=== PATIENT | male | born 1975 | race Caucasian/White ===

== ENCOUNTER → 2016-08-25 | Outpatient (CLI) | payer OTHER ==
[2016-08-25 17:44] LABS: BASO % 0.5 % (0.0-1.0); EOS # 0.3 K/mm3 (0.0-0.50); EOS % 6.3 % (0.0-3.0); LARGE UNSTAINED CELL # 0.1 K/mm3 (0.0-0.4); LARGE UNSTAINED CELL % 2.3 % (0.0-4.0); LYMPH % 37.2 % (24.0-44.0); MEAN CORPUSCULAR HEMOGLOBIN 32.3 pg (27.0-33.0); MEAN CORPUSCULAR HGB CONC 35.4 g/dl (32.0-36.5); MEAN CORPUSCULAR VOLUME 91.4 fl (80.0-96.0); MONO # 0.4 K/mm3 (0.0-0.8); MONO % 8.3 % (0.0-5.0); NEUTROPHILS # 2.4 K/mm3 (1.8-7.7); NEUTROPHILS % 45.4 % (36.0-66.0); PLATELET COUNT, AUTOMATED 214 k/mm3 (150-450); RED CELL DISTRIBUTION WIDTH 12.8 % (11.5-14.5); WHITE BLOOD COUNT 5.3 K/mm3 (4.0-10.0)
[2016-08-25 18:02] LABS: ALBUMIN 3.9 GM/DL (3.2-5.2); ALBUMIN/GLOBULIN RATIO 1.18 (1.00-1.93); ALKALINE PHOSPHATASE 114 U/L (45-117); ALT/SGPT 76 U/L (12-78); ANION GAP 10 MEQ/L (8-16); AST/SGOT 30 U/L (15-37); BILIRUBIN,TOTAL 0.4 MG/DL (0.2-1.0); BLOOD UREA NITROGEN 14 MG/DL (7-18); CALCIUM LEVEL 9.1 MG/DL (8.5-10.1); CARBON DIOXIDE LEVEL 27 MEQ/L (21-32); CHLORIDE LEVEL 106 MEQ/L (98-107); CHOLESTEROL LEVEL 244 MG/DL (<200); CREATININE FOR GFR 1.32 MG/DL (0.70-1.30); GLOMERULAR FILTRATION RATE > 60.0 (>60); GLUCOSE, FASTING 94 MG/DL (70-105); POTASSIUM SERUM 4.3 MEQ/L (3.5-5.1); SODIUM LEVEL 143 MEQ/L (136-145); TOTAL PROTEIN 7.2 GM/DL (6.4-8.2); TRIGLYCERIDES LEVEL 502 MG/DL (<150)
== END ==
LOC: M WUC 15:35
PROVIDERS: ATTEND Family Medicine
DX: Z00.00 Encounter for general adult medical examination without abnormal findings (principal); E55.9 Vitamin D deficiency, unspecified

== ENCOUNTER → 2016-09-01 | Outpatient (CLI) | payer OTHER ==
[2016-09-01 18:24] LABS: AMYLASE 63 U/L (25-115)
== END ==
LOC: M WUC 14:10
PROVIDERS: ATTEND Family Medicine
DX: E78.2 Mixed hyperlipidemia (principal); R19.7 Diarrhea, unspecified; G43.A0 Cyclical vomiting, in migraine, not intractable

== ENCOUNTER → 2016-09-03 | Outpatient (CLI) | payer OTHER | LOC: M RAD 07:48 | PROVIDERS: ATTEND Internal Medicine | DX: R14.0 Abdominal distension (gaseous) (principal); K92.1 Melena; R19.7 Diarrhea, unspecified; R11.10 Vomiting, unspecified; Z53.9 Procedure and treatment not carried out, unspecified reason ==

== ENCOUNTER → 2016-09-04 | Outpatient (CLI) | payer OTHER ==
--- NOTE | 2016-09-04 12:15 | REP ---
Gastric emptying nuclear scintigraphy: History: Bloating, diarrhea and vomiting. Abdominal pain. Technique: 0.926 mCi of technetium-99m sulfur colloid was ingested in two scrambled eggs and 6 ounces of water and sequential anterior and posterior images are acquired for an 89-minute imaging observation period. Regions of interest are drawn around the stomach to plot gastric emptying. Scintigraphic findings: Expected T1/2 is 90 minutes. 20 % emptying is observed in this patient during the 89-minute imaging observation period, for a calculated T1/2 in this patient of 231 minutes. Impression: Quite delayed gastric emptying. Signed by Billy Rios MD 09/04/2016 12:06 P
== END ==
LOC: M RAD 09:13
PROVIDERS: ATTEND Internal Medicine
DX: R14.0 Abdominal distension (gaseous) (principal); K92.1 Melena; R19.7 Diarrhea, unspecified; R11.10 Vomiting, unspecified

== ENCOUNTER → 2017-01-28 | Outpatient (CLI) | payer OTHER ==
[2017-01-28 17:50] LABS: ALBUMIN 3.9 GM/DL (3.2-5.2); ALBUMIN/GLOBULIN RATIO 1.22 (1.00-1.93); ALKALINE PHOSPHATASE 99 U/L (45-117); ALT/SGPT 90 U/L (12-78); ANION GAP 6 MEQ/L (8-16); AST/SGOT 41 U/L (15-37); BILIRUBIN,TOTAL 0.3 MG/DL (0.2-1.0); BLOOD UREA NITROGEN 9 MG/DL (7-18); CALCIUM LEVEL 8.9 MG/DL (8.5-10.1); CARBON DIOXIDE LEVEL 29 MEQ/L (21-32); CHLORIDE LEVEL 103 MEQ/L (98-107); CREATININE FOR GFR 1.15 MG/DL (0.70-1.30); GLOMERULAR FILTRATION RATE > 60.0 (>60); GLUCOSE, FASTING 106 MG/DL (70-105); POTASSIUM SERUM 3.8 MEQ/L (3.5-5.1); SODIUM LEVEL 138 MEQ/L (136-145); TOTAL PROTEIN 7.1 GM/DL (6.4-8.2); URIC ACID 8.4 MG/DL (3.5-7.2)
[2017-01-31 00:06] LABS: Lyme Disease IgG/IgM Antibodie <0.91 ISR (0.00-0.90); Lyme Disease IgM Ab Quantitati <0.80 index (0.00-0.79)
== END ==
LOC: M WUC 14:35
PROVIDERS: ATTEND Family Medicine
DX: M12.9 Arthropathy, unspecified (principal)

== ENCOUNTER → 2017-02-09 | Outpatient (CLI) | payer OTHER ==
[2017-02-09 19:40] LABS: FERRITIN 176 NG/ML (26-388); PERCENT SATURATION 30.7 % (19.7-37.4); TOTAL IRON BINDING CAPACITY 355 UG/DL (250-450)
[2017-02-10 11:09] LABS: HEPATITIS B SURFACE ANTIBODY POSITIVE (POSITIVE)
[2017-02-12 01:12] LABS: ALPHA 1 ANTITRYPSIN 134 mg/dL (90-200); IgG SERUM (part of Subclasses) 778 mg/dL (700-1600); IgG Subclass 1 471 mg/dL (248-810); IgG Subclass 2 268 mg/dL (130-555); IgG Subclass 3 41 mg/dL (15-102); IgG Subclass 4 46 mg/dL (2-96)
== END ==
LOC: M WUC 10:44
PROVIDERS: ATTEND Internal Medicine
DX: R94.5 Abnormal results of liver function studies (principal)

== ENCOUNTER → 2017-02-09 | Outpatient (CLI) | payer OTHER ==
--- NOTE | 2017-02-09 10:15 | REP ---
Right Upper quadrant sonography: History: Elevated liver function studies. Comparison study: CT study of the abdomen and pelvis June 29, 2016. Findings: Scanning through the right upper quadrant of the abdomen demonstrates a normal sized thin-walled gallbladder without evidence of stone. There is a 5 mm nonshadowing polyp on the anterior wall of the gallbladder and a similar size polyp is seen in the posterior wall of the gallbladder. Question adenomyomatosis. No pericholecystic fluid is seen. Common bile duct is normal measuring 0.4 cm in greatest diameter. There is evidence of fatty infiltration of the liver. There is a 1.2 x 0.9 x 1.3 cm hypoechoic lesion in the left lobe of the liver centrally. There is also a peripheral left lobe hypoechoic lesion measuring 1.6 x 1.6 x 1.0 cm. These correspond to the hypervascular lesions seen on CT. The right lobe also contains a 2.0 x 1.7 x 1.0 cm hypoechoic lesion. There are hyperdense areas on the recent CT study corresponding to each of these three liver lesions by ultrasound. Limited views of the pancreas show no abnormality. No right renal abnormality or ascites is seen. Right kidney measures 12.1 x 5.6 x 4.8 cm. Impression: Evidence of fatty infiltration of the liver. Three hypoechoic lesions corresponding to enhancing hemangiomas on CT are seen. Two small gallbladder wall polyps noted. No other significant abnormality. Signed by Billy Rios MD 02/09/2017 12:17 P
== END ==
LOC: M RAD 09:12
PROVIDERS: ATTEND Internal Medicine
DX: R94.5 Abnormal results of liver function studies (principal)

== ENCOUNTER → 2017-03-26 | Outpatient (CLI) | payer OTHER ==
[2017-03-26 18:11] LABS: COMPLEMENT C3 127 MG/DL (90-180); FREE T4 1.07 NG/DL (0.76-1.46)
[2017-04-01 00:07] LABS: C1 ESTERASE INHIB. FUNCTIONAL 73 (.)
== END ==
LOC: M WUC 11:45
PROVIDERS: ATTEND Physician Assistant
DX: R10.84 Generalized abdominal pain (principal); R53.81 Other malaise; J30.1 Allergic rhinitis due to pollen

== ENCOUNTER → 2017-04-23 | Outpatient (CLI) | payer OTHER ==
--- NOTE | 2017-04-23 11:13 | REP ---
Clinical: Cough . Comparison: 05/14/2014 . Technique: PA and lateral. Findings: The mediastinum and cardiac silhouette are normal. The lung nguyễn are clear and without acute consolidation, effusion, or pneumothorax. The skeletal structures are intact and normal. Impression: 1. No acute cardiopulmonary process. Signed by Kenton Azul MD 04/23/2017 09:57 A
[2017-04-26 14:53] LABS: ALBUMIN 4.17 GM/DL (3.29-5.55); ALBUMIN % 59.6 % (55.8-66.1); GAMMA GLOBULIN % 13.3 % (11.1-18.8)
== END ==
LOC: M WUC 09:26
PROVIDERS: ATTEND Physician Assistant
DX: R05 Cough (principal); R79.9 Abnormal finding of blood chemistry, unspecified

== ENCOUNTER → 2017-06-28 | Outpatient (REF) | payer OTHER | LOC: M LAB REF 17:39 | PROVIDERS: ATTEND Internal Medicine Medical Oncology | DX: R77.1 Abnormality of globulin (principal) ==

== ENCOUNTER → 2017-07-21 | Outpatient (REF) | payer OTHER ==
[2017-07-28 10:13] LABS: 5-HIAA, URINE 3.1 mg/L (Undefined)
== END ==
LOC: M LAB REF 16:34
PROVIDERS: ATTEND Internal Medicine Medical Oncology
DX: D82.4 Hyperimmunoglobulin E [IgE] syndrome (principal)

== ENCOUNTER → 2017-07-28 | Outpatient (CLI) | payer OTHER ==
[2017-07-28 15:40] LABS: ALBUMIN 3.7 GM/DL (3.2-5.2); ALKALINE PHOSPHATASE 96 U/L (45-117); ANION GAP 7 MEQ/L (8-16); AST/SGOT 43 U/L (7-37); BILIRUBIN,TOTAL 0.3 MG/DL (0.2-1.0); BLOOD UREA NITROGEN 13 MG/DL (7-18); CALCIUM LEVEL 9.2 MG/DL (8.5-10.1); CARBON DIOXIDE LEVEL 32 MEQ/L (21-32); CHLORIDE LEVEL 102 MEQ/L (98-107); CREATININE FOR GFR 0.97 MG/DL (0.70-1.30); GLOMERULAR FILTRATION RATE > 60.0 (>60); POTASSIUM SERUM 4.6 MEQ/L (3.5-5.1); SODIUM LEVEL 141 MEQ/L (136-145); URIC ACID 5.9 MG/DL (3.5-7.2)
[2017-07-28 15:50] LABS: ALBUMIN/GLOBULIN RATIO 1.06 (1.00-1.93); TOTAL PROTEIN 7.2 GM/DL (6.4-8.2)
[2017-07-28 15:55] LABS: GLUCOSE, FASTING 97 MG/DL (70-105)
[2017-07-28 16:08] LABS: ALT/SGPT 79 U/L (12-78)
== END ==
LOC: M SMT 11:16
PROVIDERS: ATTEND Family Medicine
DX: M10.9 Gout, unspecified (principal)

== ENCOUNTER → 2017-09-10 | Outpatient (CLI) | payer OTHER ==
[2017-09-10 20:03] LABS: VITAMIN B12 LEVEL 1487 PG/ML (247-911)
[2017-09-10 20:07] LABS: RHEUMATOID FACTOR QUANT < 10.0 IU/ML (0-15.0)
[2017-09-10 20:07] LABS: VALPROIC ACID (DEPAKOTE) 77.1 UG/ML (50.0-100.0)
[2017-09-10 21:18] LABS: ERYTHROCYTE SEDIMENTATION RATE 1 mm/hr (0-15)
[2017-09-13 10:04] LABS: FOLATE 11.6 NG/ML (>5.4)
[2017-09-13 14:12] LABS: ANTINUCLEAR ANTIBODIES DIRECT Negative (Negative)
[2017-09-14 10:17] LABS: DRVV SCREEN 43.7 SEC
== END ==
LOC: M WUC 16:05
DX: G43.009 Migraine without aura, not intractable, without status migrainosus (principal); M54.5 Low back pain; R53.1 Weakness
CPT/HCPCS: 82746

== ENCOUNTER → 2017-09-27 | Outpatient (CLI) | payer OTHER | LOC: M WUC 16:25 | DX: R61 Generalized hyperhidrosis (principal) | CPT/HCPCS: 71046 ==

== ENCOUNTER → 2017-09-27 | Outpatient (CLI) | payer OTHER ==
[2017-09-27 21:10] LABS: URIC ACID 8.2 MG/DL (3.5-7.2)
[2017-09-29 08:18] LABS: QUANTIFERON GOLD TB Negative (Negative); TB Test (QFT) Antigen 0.05 IU/mL (.); TB Test (QFT) Mitogen >10.00 IU/mL (.); TB Test (QFT) Nil 0.05 IU/mL (.)
== END ==
LOC: M WUC 16:20
DX: R61 Generalized hyperhidrosis (principal)
CPT/HCPCS: 84550

== ENCOUNTER → 2018-02-09 | Outpatient (CLI) | payer OTHER | LOC: M SLEEP 19:09 | DX: G47.33 Obstructive sleep apnea (adult) (pediatric) (principal) | CPT/HCPCS: 95811 ==

== ENCOUNTER → 2018-03-08 | Outpatient (CLI) | payer OTHER | LOC: M RAD 07:31 | DX: R10.11 Right upper quadrant pain (principal) | CPT/HCPCS: J2805 ==

== ENCOUNTER 2018-10-17 15:21 | Inpatient (IN) | payer OTHER ==
[~2018-10-17] VITALS: Ht 177.8 cm; Wt 104.8 kg
[2018-10-17] MEDS ORDERED: MULTCAP PO (15:38)
[2018-10-17] MEDS ORDERED: OMEP40CA2 PO (15:38)
[2018-10-17] MEDS ORDERED: MONT10TA2 PO (15:38)
[2018-10-17] MEDS ORDERED: VITA200028 PO (15:38)
[2018-10-17] MEDS ORDERED: DICL50TAB PO (15:38)
[2018-10-17] MEDS ORDERED: DIVA500T9 PO (15:38)
[2018-10-17] MEDS ORDERED: MYDA1CAP PO (15:38)
[2018-10-17] MEDS ORDERED: CETI10TA PO (15:38)
[2018-10-17] MEDS ORDERED: BRIN1TAB3 PO (15:38)
[2018-10-17] MEDS ORDERED: NORT25CA2 PO (15:38)
[2018-10-17] MEDS ORDERED: ATEN100T PO (15:38)
[2018-10-17 16:35] LABS: HEMATOCRIT 49.8 % (42.0-52.0); HEMOGLOBIN 17.3 g/dl (13.5-17.5); MEAN CORPUSCULAR HEMOGLOBIN 31.1 pg (27.0-33.0); MEAN CORPUSCULAR HGB CONC 34.7 g/dl (32.0-36.5); MEAN CORPUSCULAR VOLUME 89.6 fl (80.0-96.0); PLATELET COUNT, AUTOMATED 235 10^3/uL (150-450); RED BLOOD COUNT 5.56 10^6/uL (4.30-6.10); WHITE BLOOD COUNT 7.9 10^3/uL (4.0-10.0)
[2018-10-17 17:00] LABS: AMPHETAMINES LEVEL URINE POSITIVE (NEGATIVE); BARBITURATES URINE NEGATIVE (NEGATIVE); BENZODIAZEPINES URINE NEGATIVE (NEGATIVE); CANNABINOIDS URINE NEGATIVE (NEGATIVE); COCAINE METABOLITE URINE NEGATIVE (NEGATIVE); METHADONE URINE NEGATIVE (NEGATIVE); OPIATES URINE NEGATIVE (NEGATIVE); PHENCYCLIDINE URINE NEGATIVE (NEGATIVE)
[2018-10-17 17:07] LABS: ACETAMINOPHEN LEVEL < 2.0 UG/ML (10.0-30.0); ALBUMIN 4.2 GM/DL (3.2-5.2); ALT/SGPT 68 U/L (12-78); BILIRUBIN,DIRECT 0.1 MG/DL (0.0-0.2); BILIRUBIN,TOTAL 0.5 MG/DL (0.2-1.0); BLOOD UREA NITROGEN 14 MG/DL (7-18); CALCIUM LEVEL 9.1 MG/DL (8.5-10.1); CARBON DIOXIDE LEVEL 27 MEQ/L (21-32); CHLORIDE LEVEL 104 MEQ/L (98-107); CREATININE FOR GFR 1.26 MG/DL (0.70-1.30); ETHYL ALCOHOL (ETHANOL) < 0.003 % (0.000-0.010); GLOMERULAR FILTRATION RATE > 60.0 (>60); GLUCOSE, FASTING 92 MG/DL (70-100); POTASSIUM SERUM 4.1 MEQ/L (3.5-5.1); SALICYLATE LEVEL 2.2 MG/DL (5.0-30.0); SODIUM LEVEL 141 MEQ/L (136-145); TOTAL PROTEIN 7.6 GM/DL (6.4-8.2)
[2018-10-17] MEDS ORDERED: VITMTA PO (18:29)
[2018-10-17] MEDS ORDERED: DRIS50003 PO (18:31)
[2018-10-17] MEDS ORDERED: MOM 30ML SUSPENSION UDC PO PRN (19:45)
[2018-10-17] MEDS ORDERED: ACETAMINOPHEN TAB 650MG DOSE (2X325MG) PO PRN (19:45)
[2018-10-17] MEDS ORDERED: MAALOX 30 ML SUSP *UDC PO PRN (19:45)
[2018-10-17 23:30] VITALS: BP 140/8
[2018-10-18] MEDS: diphenhydrAMINE 25 MG CAP PO PRN ×2 (00:04→22:54)
[2018-10-18 06:38] VITALS: BP 102/64
--- NOTE | 2018-10-18 09:54 | HPEPDOC ---
[facility] Medical History & Physical Date of Admission Oct 17, 2018 History and Physical PCP: Dr Gonzalez ATTENDING: Dr. Yana Chandra HPI: 43yoM admitted to [facility] for unspecified depressive disorder, being medically examined today. Limited participation with history and PE as pt had one episode of vomiting and stated he felt like he was going to have diarrhea. States this is a chronic issue for him related to abdominal migraine and migraine NOBLES. Denies NOBLES pain currently. States symptoms flare up when he gets nervous or upset. Denies any fevers, chills, weakness, fatigue, NOBLES, CP, SOB, cough, palpitations, abdominal pain, N/V/D or changes in bowel or bladder habits. PMHx: Anxiety depression ADHD H/O SI SADE, sleep study 01/31, CPAP. Migraine NOBLES/Abdominal migraine-Follows with Dea SHEN. Pt states is prescribed Pamelor/Depakote. allergic rhinitis GERD chronic back pain HTN Obesity. BMI 31.8. PSHX: hernia repair SOCHX: Resides in: [facility] Marital Status: single Tobacco use: smoker ETOH: 3-4 per month Illicit Drugs: Denies IV Drug Use: Denies Tattoos done unprofessionally: Denies FAMHX: Pt is unable to provide at this time. ROS: As noted in HPI, otherwise 11pt ROS of systems reviewed and unremarkable. PE: Limited exam at bedside. GEN: 43yoM, appears stated age. Well-nourished, well developed. Nauseated. Alert and oriented x 3. HEENT: Normocephalic, atraumatic. Sclera are nonicteric. Conjunctiva without injection. No facial asymmetry. Moist mucous membranes. CHEST: Regular rate and rhythm, +S1, +S2 LUNGS: Clear to auscultation bilaterally. No wheezes, rales, or rhonchi. Br eathing appears symmetric and easy. Patient is speaking in full sentences. No accessory muscle use. ABD: Round, soft, non-tender, non-distended. +Bowel sounds throughout. No rebound or guarding. No costovertebral angle tenderness. EXT: No lower extremity edema appreciated. SKIN: [place], dry, warm. No rashes. NEURO: Alert and oriented x 3. No focal deficits appreciated. EKG: pending A&P: 43yoM admitted to [facility] for unspecified depressive disorder, 1. Psych. Plan per Psychiatry. Obtain baseline EKG to assure the safety of psychiatric medications as they can prolong the QT interval. 2. Nicotine dependence. Patch available. 3. N/V/abdominal pain. Pt states this is consistent with his abdominal migraine symptoms. Pt is afebrile. Will update CBC. Update CMP, check lipase. UA with reflex culture. GI panel ordered if pt has diarrhea. Pt declines zofran as he states he does not feel he needs it at this time. Consider CT A/P if symptoms persist. Monitor. 4. Abdominal migraine/Migraine NOBLES. Pt follows with [facility], consider consultation if needed. Continue Depakote ER 1000mg daily, update Depakote level. Continue Pamelor 25mg HS. Continue Tylenol as needed. 5. Follow up with PCP at d/c. 6. Hypertension. Continue atenolol 100 mg by mouth daily with hold parameters. 7. GERD. Continue Prilosec 40 mg daily. 8. Allergic rhinitis. Continue Zyrtec 10 mg daily, Singulair 10 mg daily. 9. SADE. Continue CPAP with home settings. 10. Obesity. Complicates care. TSH is noted within normal limits. Glucose on admission labs as noted to be 92. 11. Staff member Cody present throughout exam. Vital Signs Vital Signs Date Time Temp Pulse Resp B/P (MAP) Pulse Ox O2 Delivery O2 Flow Rate FiO2 10/18/18 06:38 97.4 68 18 102/64 (77) 10/17/18 23:30 96 10/17/18 21:18 Room Air Laboratory Data Labs 24H Laboratory Tests 2 10/17/18 16:22: Nucleated Red Blood Cells % (auto) 0.0, Anion Gap 10, Glomerular Filtration Rate > 60.0, Calcium Level 9.1, Aspartate Amino Transf (AST/SGOT) 23, Alanine Aminotransferase (ALT/SGPT) 68, Alkaline Phosphatase 86, Total Bilirubin 0.5, Direct Bilirubin 0.1, Total Protein 7.6, Albumin 4.2, Albumin/Globulin Ratio 1.24, Thyroid Stimulating Hormone (TSH) 2.130, Salicylates Level 2.2L, Urine Amphetamines Screen POSITIVEH, Urine Benzodiazepines Screen NEGATIVE, Urine Opiates Screen NEGATIVE, Urine Methadone Screen NEGATIVE, Acetaminophen Level < 2.0L, Urine Barbiturates Screen NEGATIVE, Urine Phencyclidine Screen NEGATIVE, Urine Cocaine Metabolite Screen NEGATIVE, Urine Cannabinoids Screen NEGATIVE, Ethyl Alcohol Level < 0.003 CBC/BMP Laboratory Tests 10/17/18 16:22 Red Blood Count 5.56, Mean Corpuscular Volume 89.6, Mean Corpuscular Hemoglobin 31.1, Mean Corpuscular Hemoglobin Concent 34.7, Red Cell Distribution Width 12.2 Home Medications Scheduled (Mydayis 25 mg) 1 Cap Cap, 25 MG PO DAILY Atenolol (Atenolol) 100 Mg Tab, 100 MG PO DAILY Cetirizine HCl (Cetirizine HCl) 10 Mg Tab, 10 MG PO QHS Diclofenac Sodium (Diclofenac Sodium Dr) 50 Mg Tab, 50 MG PO BID Divalproex Sodium (Divalproex Sodium ER) 500 Mg Tab, 1,000 MG PO QHS Montelukast Sodium (Montelukast Sodium) 10 Mg Tab, 10 MG PO QHS Multivitamins *[facility] STOCKED* (Thera M Plus *[facility] STOCKED*) 1 Tab Tab, 1 TAB PO QHS Nortriptyline HCl (Nortriptyline HCl) 25 Mg Cap, 25 MG PO QHS Omeprazole (Omeprazole) 40 Mg Cap, 40 MG PO DAILY Vitamin D (Drisdol) 50,000 Unit Cap, 50,000 UNIT PO 1XWK WEDNESDAY NIGHTS Vortioxetine Hydrobromide (Trintellix) 20 Mg Tab, 20 MG PO QHS Allergies Coded Allergies: [place] (Verified Allergy, Unknown, 10/17/18) July Davis Oct 18, 2018 09:54
[2018-10-18] MEDS: OMEPRAZOLE 20 MG CAP PO SCH (10:45)
[2018-10-18 11:27] LABS: HEMATOCRIT 50.9 % (42.0-52.0); HEMOGLOBIN 17.5 g/dl (13.5-17.5); MEAN CORPUSCULAR HEMOGLOBIN 31.1 pg (27.0-33.0); MEAN CORPUSCULAR HGB CONC 34.4 g/dl (32.0-36.5); MEAN CORPUSCULAR VOLUME 90.4 fl (80.0-96.0); PLATELET COUNT, AUTOMATED 241 10^3/uL (150-450); RED BLOOD COUNT 5.63 10^6/uL (4.30-6.10); WHITE BLOOD COUNT 7.7 10^3/uL (4.0-10.0)
[2018-10-18] MEDS: ATENOLOL 50 MG TAB PO SCH (12:03)
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
[2018-10-18 13:11] LABS: ALBUMIN 4.1 GM/DL (3.2-5.2); ALT/SGPT 67 U/L (12-78); BILIRUBIN,TOTAL 0.6 MG/DL (0.2-1.0); BLOOD UREA NITROGEN 16 MG/DL (7-18); CARBON DIOXIDE LEVEL 26 MEQ/L (21-32); CHLORIDE LEVEL 104 MEQ/L (98-107); CREATININE FOR GFR 1.28 MG/DL (0.70-1.30); GLOMERULAR FILTRATION RATE > 60.0 (>60); GLUCOSE, FASTING 75 MG/DL (70-100); LIPASE 236 U/L (73-393); POTASSIUM SERUM 4.3 MEQ/L (3.5-5.1); SODIUM LEVEL 142 MEQ/L (136-145); TOTAL PROTEIN 7.6 GM/DL (6.4-8.2)
[2018-10-18 18:13] VITALS: BP 118/74
[2018-10-18] MEDS: CETIRIZINE (ZyrTEC) 10 MG TAB PO SCH (20:23)
[2018-10-18] MEDS: MULTIVITAMINS/MINERALS THERAP 1 TAB PO SCH (20:23)
[2018-10-18] MEDS: MONTELUKAST 10 MG TAB PO SCH (20:23)
[2018-10-18] MEDS: DIVALPROEX 500MG *ER* TAB PO SCH (20:23)
[2018-10-18] MEDS ORDERED: NORTRIPTYLINE 25 MG CAP PO SCH (21:00)
[2018-10-18] MEDS ORDERED: MIRTAZAPINE 15 MG TAB PO SCH (21:00)
[2018-10-18] MEDS: TRINTELLIX 20 MG PO SCH (22:52)
[2018-10-19 06:17] VITALS: BP 112/63
--- NOTE | 2018-10-19 07:58 | ECGEPIP ---
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
[2018-10-19] MEDS: MYDAYIS PO SCH (08:26)
[2018-10-19] MEDS: OMEPRAZOLE 20 MG CAP PO SCH (08:27)
[2018-10-19] MEDS: ATENOLOL 50 MG TAB PO SCH (08:27)
[2018-10-19] MEDS ORDERED: DICLOFENAC 50 MG PO SCH (09:00)
[2018-10-19] MEDS: IBUPROFEN 800 MG TAB PO PRN ×2 (09:53→21:19)
--- NOTE | 2018-10-19 09:58 | MHIPNPDOC ---
[facility] Progress Note Progress Note DATE OF SERVICE: 10/19/18 HISTORY: Patient is a 43 -year-old , male, with a history of depression, ADHD, and abdominal migraines who was sent by his [facility] therapist, Nuria, (regularly sees Neva at [facility] but currently on vacation) and admitted to taking extra sleeping pills over the weekend for no specific reason. Pt s tated that he didn't know what was causing his depression, whether it be all the recent med changes he's been going thru, life stressors, or both. States recently he was first taking amitriptyline but caused worsening of abdominal migraines so switched to nortriptyline 2wks ago but had to stop taking due to worsening of abdominal migraines causing his appetite to be poor. Pt also stated in the ED that he recently had a friend move in with him after living for years alone which caused him to feel happier due to the company and someone to talk to but that a mutual friend 'convinced' his roommate to move in with him causing the pt to feel betrayed and hurt by the mutual friend. Pt was tearful and anxious in the ED. Stated his sleep has been erratic. VITAL SIGNS: See below. NEW TEST RESULTS: See below. CURRENT MEDICATIONS: See below. MENTAL STATUS EXAMINATION: General Appearance: unkempt, disheveled, appears stated age, hospital scrubs/clothing Build: average Demeanor: average, withdrawn, tearful Eye Contact: average Activity: average, anxious, distraught Behavior: cooperative, withdrawn, tearful Speech: clear, spontaneous, normal volume, reg/rate,rhythm,volume Mood: depressed, anxious Mood "hurt" Affect: constricted, flat, congruent, anxious, distraught Thought Process: logical/linear, depressed, intact Thought Content (Delusions): none reported, denies SI, HI, AVH Thought Content (Other): none reported, appropriate Thought Content (Aggressive): none reported Perception (Hallucinations): none reported Perception (Other): none reported Cognition (Impairment of): none reported Cognition(Intelligence Est.): average Oriented: Awake, Alert, Oriented times three Insight: fair Judgment: Fair Psychosis: Denies DIAGNOSES: Major Depressive D/O recurrent, severe, w/o psychosis Hx ADHD ASSESSMENT:Pt seen and states he didn't sleep last night b/c he didn't have his cpap last night which caused him to wake up frequently during the night feeling like he's suffocating. States he's exhausted today and just wants to sleep but thought had to be in group when group called. Advised pt that it's ok for him to lie down now and try to sleep as it definitely is affecting his mood as he's depressed, anxious, tearful, and distraught. Pt endorsing body pain that he takes diclofenac at home for but not on formulary here so will give him motrin 800mg prn pain which he's ok with. No stomach upset today. Discussed in treatment team that pt actually developed romantic feelings regarding his roommate to their mutual friend and that that mutual friend told roommate who isn't out regarding his sexuality. Discussed with pt and states he feels very hurt by mutual friend and doesn't want to ever speak with her again. Unsure if regrets it or if he's just apathetic about it. States trintellix and mydayis are helpful for his depression. Tolerating remeron and will increase to improve sleep. Denies SI/HI, hallucinations, delusions. Feels safe here. MANAGEMENT PLAN: continue plan Medications: remeron 30mg qhs mydayis outpatient dose trintellix outpatient dose depakote 1000mg qhs motrin 800mg q6hr prn pain TIME SPENT: 30 minutes. Vital Signs Vital Signs Date Time Temp Pulse Resp B/P (MAP) Pulse Ox O2 Delivery O2 Flow Rate FiO2 10/19/18 08:27 101 130/84 10/19/18 06:17 97.7 18 10/17/18 23:30 96 10/17/18 21:18 Room Air Laboratory Data 24H Labs Laboratory Tests 2 10/18/18 09:45: Urine Color YELLOW, Urine Appearance CLEAR, Urine pH 7.0, Urine Specific [place] 1.018, Urine Protein NEGATIVE, Urine Glucose (UA) NEGATIVE, Urine Ketones NEGA TIVE, Urine Blood NEGATIVE, Urine Nitrite NEGATIVE, Urine Bilirubin NEGATIVE, Urine Urobilinogen 2.0H, Urine Leukocyte Esterase NEGATIVE, Urine WBC (Auto) 0, Urine RBC (Auto) 0, Urine Hyaline Casts (Auto) 0, Urine Bacteria (Auto) NEGATIVE, Urine Squamous Epithelial Cells 0, Urine Sperm (Auto) 10/18/18 10:43: Nucleated Red Blood Cells % (auto) 0.0, Anion Gap 12, Glomerular Filtration Rate > 60.0, Blood Urea Nitrogen 16, Creatinine 1.28, Sodium Level 142, Potassium Level 4.3, Chloride Level 104, Carbon Dioxide Level 26, Calcium Level 10.0, Aspartate Amino Transf (AST/SGOT) 30, Alanine Aminotransferase (ALT/SGPT) 67, Alkaline Phosphatase 83, Total Bilirubin 0.6, Total Protein 7.6, Albumin 4.1, Albumin/Globulin Ratio 1.17, Lipase 236, Valproic Acid (Depakene) Level 48.4L CBC/BMP Laboratory Tests 10/18/18 10:43 Red Blood Count 5.63, Mean Corpuscular Volume 90.4, Mean Corpuscular Hemoglobin 31.1, Mean Corpuscular Hemoglobin Concent 34.4, Red Cell Distribution Width 12.4, Calcium Level 10.0, Aspartate Amino Transf (AST/SGOT) 30, Alanine Aminotransferase (ALT/SGPT) 67, Alkaline Phosphatase 83, Total Bilirubin 0.6, Total Protein 7.6, Albumin 4.1 Current Medications Current Medications Acetaminophen (Tylenol Tab) 650 mg Q6HP PRN PO HEADACHE or DISCOMFORT; Start 10/17/18 at 19:45 Al Hydrox/Mg Hydrox/Simethicone (Mylanta) 30 ml Q4HP PRN PO HEARTBURN/INDIGESTION; Start 10/17/18 at 19:45 Atenolol (Tenormin) 100 mg DAILY PO Last administered on 10/19/18at 08:27; Start 10/18/18 at 09:00 Cetirizine HCl (ZyrTEC) 10 mg QHS PO Last administered on 10/18/18at 20:23; Start 10/18/18 at 21:00 Diphenhydramine HCl (Benadryl) 50 mg QHSP PRN PO INSOMNIA Last administered on 10/18/18at 22:54; Start 10/17/18 at 19:45 Divalproex Sodium (Depakote Er) 1,000 mg QHS PO Last administered on 10/18/18at 20:23; Start 10/18/18 at 21:00 Home Med (Med Rec Complete!) ASDIRECTED XX ; Start 10/17/18 at 18:45; Stop 10/17/18 at 18:45; Status DC Magnesium Hydroxide (Milk Of Magnesia) 30 ml DAILYPRN PRN PO CONSTIPATION; Start 10/17/18 at 19:45 Mirtazapine (Remeron) 15 mg QPM PO Last administered on 10/18/18 20:23; Start 10/18/18 at 21:00 Miscellaneous (Unresolved Patient Own Med Order) SEE LABEL COMMENTS DAILY XX ; Start 10/18/18 at 09:00; Stop 10/18/18 at 22:31; Status DC Montelukast Sodium (Singulair) 10 mg QHS PO Last administered on 10/18/18 20:23; Start 10/18/18 at 21:00 Multivitamins (Theragram-M) 1 tab QHS PO Last administered on 10/18/18 20:23; Start 10/18/18 at 21:00 Nortriptyline HCl (Pamelor) 25 mg QHS PO ; Start 10/18/18 at 21:00; Status Cancel Omeprazole (PriLOSEC) 40 mg DAILY PO Last administered on 10/19/18 08:27; Start 10/18/18 at 09:00 Patient Own Medication (Patient'S Own Med) 1 ea BID PO ; Start 10/19/18 at 09:00; Status UNV Patient Own Medication (Patient'S Own Med) MYDAYIS ER 25 MG CAPSU... DAILY PO Last administered on 10/19/18 08:26; Start 10/19/18 at 09:00 Patient Own Medication (Patient'S Own Med) TRINTELLIX 20 MG TAB: ADMINIS... QHS PO Last administered on 10/18/18 22:52; Start 10/18/18 at 21:00 Allergies Coded Allergies: [place] (Verified Allergy, Unknown, 10/17/18) CHRISTINE MORILLO DO Oct 19, 2018 9:17 am
[2018-10-19 18:22] VITALS: BP 137/79
[2018-10-19] MEDS: CETIRIZINE (ZyrTEC) 10 MG TAB PO SCH (21:15)
[2018-10-19] MEDS: MULTIVITAMINS/MINERALS THERAP 1 TAB PO SCH (21:15)
[2018-10-19] MEDS: MIRTAZAPINE 15 MG TAB PO SCH (21:15)
[2018-10-19] MEDS: DIVALPROEX 500MG *ER* TAB PO SCH (21:15)
[2018-10-19] MEDS: MONTELUKAST 10 MG TAB PO SCH (21:15)
[2018-10-19] MEDS: TRINTELLIX 20 MG PO SCH (21:16)
[2018-10-19] MEDS: diphenhydrAMINE 25 MG CAP PO PRN (21:54)
[2018-10-20 06:39] VITALS: BP 148/79
[2018-10-20] MEDS: MYDAYIS PO SCH (08:43)
[2018-10-20] MEDS: ATENOLOL 50 MG TAB PO SCH (08:44)
[2018-10-20] MEDS: OMEPRAZOLE 20 MG CAP PO SCH (08:44)
[2018-10-20] MEDS: IBUPROFEN 800 MG TAB PO PRN (08:46)
--- NOTE | 2018-10-20 10:48 | MHIPNPDOC ---
[facility] Progress Note Progress Note DATE OF SERVICE: 10/20/18 HISTORY: Patient is a 43 -year-old , male, with a history of depression, ADHD, and abdominal migraines who was sent by his [facility] therapist, Nuria, (regularly sees Neva at [facility] but currently on vacation) and admitted to taking extra sleeping pills over the weekend for no specific reason. Pt stated that he didn't know what was causing his depression, whether it be all the recent med changes he's been going thru, life stressors, or both. States recently he was first taking amitriptyline but caused worsening of abdominal migraines so switched to nortriptyline 2wks ago but had to stop taking due to worsening of abdominal migraines causing his appetite to be poor. Pt also stated in the ED that he recently had a friend move in with him after living for years alone which caused him to feel happier due to the company and someone to talk to but that a mutual friend 'convinced' his roommate to move in with him c ausing the pt to feel betrayed and hurt by the mutual friend. Pt was tearful and anxious in the ED. Stated his sleep has been erratic. VITAL SIGNS: See below. NEW TEST RESULTS: See below. CURRENT MEDICATIONS: See below. MENTAL STATUS EXAMINATION: General Appearance: unkempt, disheveled, appears stated age, hospital scrubs/clothing Build: average Demeanor: average, withdrawn, tearful Eye Contact: average Activity: average, anxious, distraught Behavior: cooperative, withdrawn, tearful Speech: clear, spontaneous, normal volume, reg/rate,rhythm,volume Mood: depressed, anxious Mood "so-so" Affect: constricted, flat, congruent, anxious, distraught Thought Process: logical/linear, depressed, intact Thought Content (Delusions): none reported, denies SI, HI, AVH Thought Content (Other): none reported, appropriate Thought Content (Aggressive): none reported Perception (Hallucinations): none reported Perception (Other): none reported Cognition (Impairment of): none reported Cognition(Intelligence Est.): average Oriented: Awake, Alert, Oriented times three Insight: fair Judgment: Fair Psychosis: Denies DIAGNOSES: Major Depressive D/O recurrent, severe, w/o psychosis Hx ADHD ASSESSMENT:Pt seen and states he states he slept better last night using his cpap. Pt asking for bid dosing motrin 800mg for body pain and agreeable. No stomach upset today. Continues to endorse very "hurt" feelings regarding his roommate and friend that broke his trust. Fearful that roommate will move out as he feels his roommate is "like family." Encouraged to talk with his roommate while he's here over phone as pt appears to be making a lot of assumptions regarding is roommate moving out when doesn't really know which is worsening his mood and anxiety. Is scared to call roommate and hear what he has to say but states he'll think about it. States he knows his roommate is very supportive of him though. Is attending groups and finding them helpful. Denies SI/HI, hallucinations, delusions. Feels safe here. MANAGEMENT PLAN: continue plan Medications: remeron 30mg qhs mydayis outpatient dose trintellix outpatient dose depakote 1000mg qhs motrin 800mg q6hr prn pain TIME SPENT: 30 minutes. Vital Signs Vital Signs Date Time Temp Pulse Resp B/P (MAP) Pulse Ox O2 Delivery O2 Flow Rate FiO2 10/20/18 08:44 78 135/78 10/20/18 06:39 97.5 16 10/17/18 23:30 96 10/17/18 21:18 Room Air Current Medications Current Medications Acetaminophen (Tylenol Tab) 650 mg Q6HP PRN PO HEADACHE or DISCOMFORT; Start 10/17/18 at 19:45 Al Hydrox/Mg Hydrox/Simethicone (Mylanta) 30 ml Q4HP PRN PO HEARTBURN/INDIGESTION; Start 10/17/18 at 19:45 Atenolol (Tenormin) 100 mg DAILY PO Last administered on 10/20/18at 08:44; Start 10/18/18 at 09:00 Cetirizine HCl (ZyrTEC) 10 mg QHS PO Last administered on 10/19/18at 21:15; Start 10/18/18 at 21:00 Diphenhydramine HCl (Benadryl) 50 mg QHSP PRN PO INSOMNIA Last administered on 10/19/18at 21:54; Start 10/17/18 at 19:45 Divalproex Sodium (Depakote Er) 1,000 mg QHS PO Last administered on 10/19/18 21:15; Start 10/18/18 at 21:00 Home Med (Med Rec Complete!) ASDIRECTED XX ; Start 10/17/18 at 18:45; Stop 10/17/18 at 18:45; Status DC Ibuprofen (Advil) 800 mg Q6HP PRN PO MODERATE PAIN (PS 5-7) Last administered on 10/20/18 08:46; Start 10/19/18 at 09:15 Magnesium Hydroxide (Milk Of Magnesia) 30 ml DAILYPRN PRN PO CONSTIPATION; Start 10/17/18 at 19:45 Mirtazapine (Remeron) 15 mg QPM PO Last administered on 10/18/18 20:23; Start 10/18/18 at 21:00; Stop 10/19/18 at 10:00; Status DC Mirtazapine (Remeron) 30 mg QHS PO Last administered on 10/19/18 21:15; Start 10/19/18 at 21:00 Miscellaneous (Unresolved Patient Own Med Order) SEE LABEL COMMENTS DAILY XX ; Start 10/18/18 at 09:00; Stop 10/18/18 at 22:31; Status DC Miscellaneous (Unresolved Patient Own Med Order) SEE LABEL COMMENTS DAILY XX ; Start 10/19/18 at 09:00 Montelukast Sodium (Singulair) 10 mg QHS PO Last administered on 10/19/18 21:15; Start 10/18/18 at 21:00 Multivitamins (Theragram-M) 1 tab QHS PO Last administered on 10/19/18 21:15; Start 10/18/18 at 21:00 Nortriptyline HCl (Pamelor) 25 mg QHS PO ; Start 10/18/18 at 21:00; Status Cancel Omeprazole (PriLOSEC) 40 mg DAILY PO Last administered on 10/20/18 08:44; Start 10/18/18 at 09:00 Patient Own Medication (Patient'S Own Med) 1 ea BID PO ; Start 10/19/18 at 09:00; Status UNV Patient Own Medication (Patient'S Own Med) MYDAYIS ER 25 MG CAPSU... DAILY PO Last administered on 10/20/18 08:43; Start 3/6/19 at 09:00 Patient Own Medication (Patient'S Own Med) TRINTELLIX 20 MG TAB: ADMINIS... QHS PO Last administered on 10/19/18at 21:16; Start 10/18/18 at 21:00 Allergies Coded Allergies: [place] (Verified Allergy, Unknown, 10/17/18) CHRISTINE MORILLO DO Oct 20, 2018 10:17 am
[2018-10-20] MEDS ORDERED: LORazepam 1 MG TAB PO ONE (14:00)
[2018-10-20 18:00] VITALS: BP 127/76
[2018-10-20] MEDS ORDERED: FLUBLOK(EGG FREE)(QUAD)INFLUENZA VACC 0.5ML SYRINGE (90682)18YRS&OLDER IM ONE (18:00)
[2018-10-20] MEDS: TRINTELLIX 20 MG PO SCH (21:09)
[2018-10-20] MEDS: MIRTAZAPINE 15 MG TAB PO SCH (21:10)
[2018-10-20] MEDS: MULTIVITAMINS/MINERALS THERAP 1 TAB PO SCH (21:10)
[2018-10-20] MEDS: CETIRIZINE (ZyrTEC) 10 MG TAB PO SCH (21:10)
[2018-10-20] MEDS: DIVALPROEX 500MG *ER* TAB PO SCH (21:10)
[2018-10-20] MEDS: diphenhydrAMINE 25 MG CAP PO PRN (21:10)
[2018-10-20] MEDS: MONTELUKAST 10 MG TAB PO SCH (21:10)
[2018-10-21 06:00] VITALS: BP 132/73
[2018-10-21] MEDS: OMEPRAZOLE 20 MG CAP PO SCH (09:08)
[2018-10-21] MEDS: MYDAYIS PO SCH (09:08)
[2018-10-21] MEDS: ATENOLOL 50 MG TAB PO SCH (09:10)
[2018-10-21] MEDS: IBUPROFEN 800 MG TAB PO PRN (09:11)
[2018-10-21] MEDS ORDERED: INFLUENZA QUADRIVALENT PF VACCINE 0.5ML SYRINGE (90686) IM ONE (10:15)
--- NOTE | 2018-10-21 10:44 | MHIPNPDOC ---
[facility] Progress Note Progress Note DATE OF SERVICE: 10/21/18 HISTORY: Patient is a 43 -year-old , male, with a history of depression, ADHD, and abdominal migraines who was sent by his [facility] therapist, Nuria, (regularly sees Neva at [facility] but currently on vacation) and admitted to taking extra sleeping pills over the weekend for no specific reason. Pt stated that he didn't know what was causing his depression, whether it be all the recent med changes he's been going thru, life stressors, or both. States recently he was first taking amitriptyline but caused worsening of abdominal migraines so switched to nortriptyline 2wks ago but had to stop taking due to worsening of abdominal migraines causing his appetite to be poor. Pt also stated in the ED that he recently had a friend move in with him after living for years alone which caused him to feel happier due to the company and someone to talk to but that a mutual friend 'convinced' his roommate to move in with him c ausing the pt to feel betrayed and hurt by the mutual friend. Pt was tearful and anxious in the ED. Stated his sleep has been erratic. VITAL SIGNS: See below. NEW TEST RESULTS: See below. CURRENT MEDICATIONS: See below. MENTAL STATUS EXAMINATION: General Appearance: unkempt, disheveled, appears stated age, hospital scrubs/clothing Build: average Demeanor: average, withdrawn, tearful Eye Contact: average Activity: average, anxious, distraught Behavior: cooperative, withdrawn, tearful Speech: clear, spontaneous, normal volume, reg/rate,rhythm,volume Mood: depressed, anxious Mood "hurt" Affect: constricted, flat, congruent, anxious, distraught Thought Process: logical/linear, depressed, intact Thought Content (Delusions): none reported, denies SI, HI, AVH Thought Content (Other): none reported, appropriate Thought Content (Aggressive): none reported Perception (Hallucinations): none reported Perception (Other): none reported Cognition (Impairment of): none reported Cognition(Intelligence Est.): average Oriented: Awake, Alert, Oriented times three Insight: fair Judgment: Fair Psychosis: Denies DIAGNOSES: Major Depressive D/O recurrent, severe, w/o psychosis Hx ADHD ASSESSMENT:Pt seen and still upset after speaking with roommate yesterday who is moving out leaving pt feeling lonely and emotionally hurt. States he feels like he loosing a family member. He appears depressed and weepy. Provided pt with supportive therapy but still very focused on being emotional hurt by his roommate leaving. He was crying yesterday after roommate tolld him he was moving out and anxious so he was given one time dose of ativan to help. No stomach upset today. States he's also frustrated by he how he physically feels and no one can give him an answer why or what it is even after work-up for multiple illnesses. Will see [employer] in December. Continues to endorse very "hurt" feelings regarding his roommate and friend that broke his trust. States he's tolerating his medication but unsure if beneficial. Most likely it's his recent loss of his roommate that is leaving pt depressed rather than ineffective meds though. Is attending groups and finding them helpful. Denies SI/HI, hallucinations, delusions. Feels safe here. MANAGEMENT PLAN: continue plan Medications: remeron 45mg qhs mydayis outpatient dose trintellix outpatient dose depakote 1000mg qhs motrin 800mg q6hr prn pain TIME SPENT: 30 minutes. Vital Signs Vital Signs Date Time Temp Pulse Resp B/P (MAP) Pulse Ox O2 Delivery O2 Flow Rate FiO2 10/21/18 09:10 80 139/80 10/21/18 06:00 98.2 16 10/17/18 23:30 96 10/17/18 21:18 Room Air Current Medications Current Medications Acetaminophen (Tylenol Tab) 650 mg Q6HP PRN PO HEADACHE or DISCOMFORT; Start 10/17/18 at 19:45 Al Hydrox/Mg Hydrox/Simethicone (Mylanta) 30 ml Q4HP PRN PO HEARTBURN/INDIGESTION; Start 10/17/18 at 19:45 Atenolol (Tenormin) 100 mg DAILY PO Last administered on 10/21/18at 09:10; Start 10/18/18 at 09:00 Cetirizine HCl (ZyrTEC) 10 mg QHS PO Last administered on 10/20/18at 21:10; Start 10/18/18 at 21:00 Diphenhydramine HCl (Benadryl) 50 mg QHSP PRN PO INSOMNIA Last administered on 10/20/18 21:10; Start 10/17/18 at 19:45 Divalproex Sodium (Depakote Er) 1,000 mg QHS PO Last administered on 10/20/18 21:10; Start 10/18/18 at 21:00 Home Med (Med Rec Complete!) ASDIRECTED XX ; Start 10/17/18 at 18:45; Stop 10/17/18 at 18:45; Status DC Ibuprofen (Advil) 800 mg Q6HP PRN PO MODERATE PAIN (PS 5-7) Last administered on 10/21/18 09:11; Start 10/19/18 at 09:15 Magnesium Hydroxide (Milk Of Magnesia) 30 ml DAILYPRN PRN PO CONSTIPATION; Start 10/17/18 at 19:45 Mirtazapine (Remeron) 15 mg QPM PO Last administered on 10/18/18 20:23; Start 10/18/18 at 21:00; Stop 10/19/18 at 10:00; Status DC Mirtazapine (Remeron) 30 mg QHS PO Last administered on 10/20/18 21:10; Start 10/19/18 at 21:00 Miscellaneous (Unresolved Clarification Entry) SEE LABEL COMMENTS DAILY XX ; Start 10/21/18 at 09:00; Stop 10/21/18 at 10:07; Status DC Miscellaneous (Unresolved Patient Own Med Order) SEE LABEL COMMENTS DAILY XX ; Start 10/18/18 at 09:00; Stop 10/18/18 at 22:31; Status DC Miscellaneous (Unresolved Patient Own Med Order) SEE LABEL COMMENTS DAILY XX ; Start 10/19/18 at 09:00; Stop 10/21/18 at 10:08; Status DC Miscellaneous (Unresolved Patient Own Med Order) SEE LABEL COMMENTS DAILY XX ; Start 10/21/18 at 09:00 Montelukast Sodium (Singulair) 10 mg QHS PO Last administered on 10/20/18 21:10; Start 10/18/18 at 21:00 Multivitamins (Theragram-M) 1 tab QHS PO Last administered on 10/20/18 21:10; Start 10/18/18 at 21:00 Nortriptyline HCl (Pamelor) 25 mg QHS PO ; Start 10/18/18 at 21:00; Status Cancel Omeprazole (PriLOSEC) 40 mg DAILY PO Last administered on 10/21/18at 09:08; Start 10/18/18 at 09:00 Patient Own Medication (Patient'S Own Med) Diclofenac 50mg po BID BID PO ; Start 10/19/18 at 09:00; Status UNV Patient Own Medication (Patient'S Own Med) MYDAYIS ER 25 MG CAPSU... DAILY PO Last administered on 10/21/18at 09:08; Start 10/19/18 at 09:00 Patient Own Medication (Patient'S Own Med) TRINTELLIX 20 MG TAB: ADMINIS... QHS PO Last administered on 10/20/18at 21:09; Start 10/18/18 at 21:00 Allergies Coded Allergies: [place] (Verified Allergy, Unknown, 10/17/18) CHRISTINE MORILLO DO Oct 21, 2018 10:44 am
[2018-10-21 18:05] VITALS: BP 136/74
[2018-10-21] MEDS: TRINTELLIX 20 MG PO SCH (20:58)
[2018-10-21] MEDS: DIVALPROEX 500MG *ER* TAB PO SCH (20:58)
[2018-10-21] MEDS: MULTIVITAMINS/MINERALS THERAP 1 TAB PO SCH (20:59)
[2018-10-21] MEDS: MIRTAZAPINE 15 MG TAB PO SCH (20:59)
[2018-10-21] MEDS: CETIRIZINE (ZyrTEC) 10 MG TAB PO SCH (20:59)
[2018-10-21] MEDS: MONTELUKAST 10 MG TAB PO SCH (20:59)
[2018-10-22 06:18] VITALS: BP 148/81
[2018-10-22] MEDS: MYDAYIS PO SCH (08:32)
[2018-10-22] MEDS: IBUPROFEN 800 MG TAB PO PRN (08:32)
[2018-10-22] MEDS: OMEPRAZOLE 20 MG CAP PO SCH (08:32)
[2018-10-22] MEDS: ATENOLOL 50 MG TAB PO SCH (08:32)
[2018-10-22] MEDS ORDERED: diphenhydrAMINE 50 MG CAP PO PRN (14:50)
[2018-10-22 18:38] VITALS: BP 130/72
[2018-10-22] MEDS: DIVALPROEX 500MG *ER* TAB PO SCH (21:26)
[2018-10-22] MEDS: MIRTAZAPINE 15 MG TAB PO SCH (21:26)
[2018-10-22] MEDS: TRINTELLIX 20 MG PO SCH (21:26)
[2018-10-22] MEDS: MONTELUKAST 10 MG TAB PO SCH (21:27)
[2018-10-22] MEDS: MULTIVITAMINS/MINERALS THERAP 1 TAB PO SCH (21:27)
[2018-10-22] MEDS: CETIRIZINE (ZyrTEC) 10 MG TAB PO SCH (21:27)
[2018-10-23 06:13] VITALS: BP 140/65
[2018-10-23] MEDS: MYDAYIS PO SCH (08:04)
[2018-10-23] MEDS: IBUPROFEN 800 MG TAB PO PRN (08:05)
[2018-10-23] MEDS: ATENOLOL 50 MG TAB PO SCH (08:06)
[2018-10-23] MEDS: OMEPRAZOLE 20 MG CAP PO SCH (08:06)
[2018-10-23 18:00] VITALS: BP 117/70
[2018-10-23] MEDS: TRINTELLIX 20 MG PO SCH (20:58)
[2018-10-23] MEDS: MIRTAZAPINE 15 MG TAB PO SCH (20:59)
[2018-10-23] MEDS: MULTIVITAMINS/MINERALS THERAP 1 TAB PO SCH (20:59)
[2018-10-23] MEDS: CETIRIZINE (ZyrTEC) 10 MG TAB PO SCH (20:59)
[2018-10-23] MEDS: DIVALPROEX 500MG *ER* TAB PO SCH (20:59)
[2018-10-23] MEDS: MONTELUKAST 10 MG TAB PO SCH (20:59)
[2018-10-24 06:21] VITALS: BP 125/69
[2018-10-24] MEDS: OMEPRAZOLE 20 MG CAP PO SCH (08:08)
[2018-10-24] MEDS: ATENOLOL 50 MG TAB PO SCH (08:08)
[2018-10-24] MEDS: MYDAYIS PO SCH (08:08)
--- NOTE | 2018-10-24 10:12 | MHIPNPDOC ---
[facility] Progress Note Progress Note DATE OF SERVICE: 10/24/18 HISTORY: Patient is a 43 -year-old , male, with a history of depression, ADHD, and abdominal migraines who was sent by his [facility] therapist, Nuria, (regularly sees Neva at [facility] but currently on vacation) and admitted to taking extra sleeping pills over the weekend for no specific reason. Pt stated that he didn't know what was causing his depression, whether it be all the recent med changes he's been going thru, life stressors, or both. States recently he was first taking amitriptyline but caused worsening of abdominal migraines so switched to nortriptyline 2wks ago but had to stop taking due to worsening of abdominal migraines causing his appetite to be poor. Pt also stated in the ED that he recently had a friend move in with him after living for years alone which caused him to feel happier due to the company and someone to talk to but that a mutual friend 'convinced' his roommate to move in with him causing the pt to feel betrayed and hurt by the mutual friend. Pt was tearful and anxious in the ED. Stated his sleep has been erratic. VITAL SIGNS: See below. NEW TEST RESULTS: depakote level 48.4 CURRENT MEDICATIONS: See below. MENTAL STATUS EXAMINATION: General Appearance: clean, appears stated age, hospital scrubs/clothing Build: average Demeanor: average, calm Eye Contact: average Activity: average, calm Behavior: cooperative Speech: clear, spontaneous, normal volume, reg/rate,rhythm,volume Mood: improved depressed, calm Mood "better" Affect: less constricted, no longer flat, congruent, calm Thought Process: logical/linear, depressed, intact Thought Content (Delusions): none reported, denies SI, HI, AVH Thought Content (Other): none reported, appropriate Thought Content (Aggressive): none reported Perception (Hallucinations): none reported Perception (Other): none reported Cognition (Impairment of): none reported Cognition(Intelligence Est.): average Oriented: Awake, Alert, Oriented times three Insight: fair Judgment: Fair Psychosis: Denies DIAGNOSES: Major Depressive D/O recurrent, severe, w/o psychosis Hx ADHD ASSESSMENT:Pt seen and states he's doing a lot better and thinks his meds are very beneficial and he's tolerating them well. States that his sabbatical and medical leave were approved thru [facility] which is also helping his mood. States he 's less upset about his roommate leaving and says they can still be friends and will let his roommate know that his "door is always open" if he wants to more back. 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 Appears more bright and motivated. States he's attending groups and finding them beneficial. States his overall body pain is improving. States he's sleeping well at night. Is attending groups and finding them helpful. Denies SI/HI, hallucinations, delusions. Feels safe here. MANAGEMENT PLAN: continue plan. depakote level in am Medications: remeron 45mg qhs mydayis outpatient dose trintellix outpatient dose depakote 1000mg qhs motrin 800mg q6hr prn pain TIME SPENT: 30 minutes. Vital Signs Vital Signs Date Time Temp Pulse Resp B/P (MAP) Pulse Ox O2 Delivery O2 Flow Rate FiO2 10/24/18 08:08 67 125/69 10/24/18 06:21 97.3 18 Current Medications Current Medications Acetaminophen (Tylenol Tab) 650 mg Q6HP PRN PO HEADACHE or DISCOMFORT; Start 10/17/18 at 19:45 Al Hydrox/Mg Hydrox/Simethicone (Mylanta) 30 ml Q4HP PRN PO HEARTBURN/INDIGESTION; Start 10/17/18 at 19:45 Atenolol (Tenormin) 100 mg DAILY PO Last administered on 10/24/18at 08:08; Start 10/18/18 at 09:00 Cetirizine HCl (ZyrTEC) 10 mg QHS PO Last administered on 10/23/18at 20:59; Start 10/18/18 at 21:00 Diphenhydramine HCl (Benadryl) 50 mg QHSP PRN PO INSOMNIA Last administered on 10/20/18at 21:10; Start 10/17/18 at 19:45; Stop 10/22/18 at 14:50; Status DC Diphenhydramine HCl (Benadryl) 50 mg QHSP PRN PO INSOMNIA Last administered on 10/24/18at 00:13; Start 10/22/18 at 14:50 Divalproex Sodium (Depakote Er) 1,000 mg QHS PO Last administered on 10/23/18 20:59; Start 10/18/18 at 21:00 Home Med (Med Rec Complete!) ASDIRECTED XX ; Start 10/17/18 at 18:45; Stop 10/17/18 at 18:45; Status DC Ibuprofen (Advil) 800 mg Q6HP PRN PO MODERATE PAIN (PS 5-7) Last administered on 10/23/18 08:05; Start 10/19/18 at 09:15 Magnesium Hydroxide (Milk Of Magnesia) 30 ml DAILYPRN PRN PO CONSTIPATION; Start 10/17/18 at 19:45 Mirtazapine (Remeron) 15 mg QPM PO Last administered on 10/18/18 20:23; Start 10/18/18 at 21:00; Stop 10/19/18 at 10:00; Status DC Mirtazapine (Remeron) 30 mg QHS PO Last administered on 10/20/18at 21:10; Start 10/19/18 at 21:00; Stop 10/21/18 at 10:45; Status DC Mirtazapine (Remeron) 45 mg QHS PO Last administered on 10/23/18 20:59; Start 10/21/18 at 21:00 Miscellaneous (Unresolved Clarification Entry) SEE LABEL COMMENTS DAILY XX ; Start 10/21/18 at 09:00; Stop 10/21/18 at 10:07; Status DC Miscellaneous (Unresolved Patient Own Med Order) SEE LABEL COMMENTS DAILY XX ; Start 10/18/18 at 09:00; Stop 10/18/18 at 22:31; Status DC Miscellaneous (Unresolved Patient Own Med Order) SEE LABEL COMMENTS DAILY XX ; Start 10/19/18 at 09:00; Stop 10/21/18 at 10:08; Status DC Miscellaneous (Unresolved Patient Own Med Order) SEE LABEL COMMENTS DAILY XX ; Start 10/21/18 at 09:00; Stop 10/22/18 at 15:25; Status DC Montelukast Sodium (Singulair) 10 mg QHS PO Last administered on 10/23/18 20:59; Start 10/18/18 at 21:00 Multivitamins (Theragram-M) 1 tab QHS PO Last administered on 10/23/18 20:59; Start 10/18/18 at 21:00 Nortriptyline HCl (Pamelor) 25 mg QHS PO ; Start 10/18/18 at 21:00; Status Cancel Omeprazole (PriLOSEC) 40 mg DAILY PO Last administered on 10/24/18at 08:08; Start 10/18/18 at 09:00 Patient Own Medication (Patient'S Own Med) Diclofenac 50mg po BID BID PO ; Start 10/19/18 at 09:00; Stop 10/22/18 at 15:25; Status DC Patient Own Medication (Patient'S Own Med) MYDAYIS ER 25 MG CAPSU... DAILY PO Last administered on 10/24/18at 08:08; Start 10/19/18 at 09:00 Patient Own Medication (Patient'S Own Med) TRINTELLIX 20 MG TAB: ADMINIS... QHS PO Last administered on 10/23/18at 20:58; Start 10/18/18 at 21:00 Allergies Coded Allergies: [place] (Verified Allergy, Unknown, 10/17/18) CHRISTINE MORILLO DO Oct 24, 2018 10:12 am
[2018-10-24 18:00] VITALS: BP 146/81
[2018-10-24] MEDS: MIRTAZAPINE 15 MG TAB PO SCH (20:40)
[2018-10-24] MEDS: DIVALPROEX 500MG *ER* TAB PO SCH (20:41)
[2018-10-24] MEDS: CETIRIZINE (ZyrTEC) 10 MG TAB PO SCH (20:41)
[2018-10-24] MEDS: MONTELUKAST 10 MG TAB PO SCH (20:41)
[2018-10-24] MEDS: MULTIVITAMINS/MINERALS THERAP 1 TAB PO SCH (20:41)
[2018-10-24] MEDS: TRINTELLIX 20 MG PO SCH (20:41)
[2018-10-25 06:46] VITALS: BP 126/75
[2018-10-25 08:26] VITALS: BP 126/75
[2018-10-25] MEDS: MYDAYIS PO SCH (08:26)
[2018-10-25] MEDS: ATENOLOL 50 MG TAB PO SCH (08:26)
[2018-10-25] MEDS: OMEPRAZOLE 20 MG CAP PO SCH (08:26)
--- NOTE | 2018-10-25 09:00 | MHDSPDOC ---
[facility] Discharge Summary Discharge Summary DATE OF ADMISSION: Oct 17, 2018 at 7:37 pm DATE OF DISCHARGE: Oct 25, 2018 DISCHARGE DIAGNOSES: Major Depressive D/O recurrent, severe, w/o psychosis Hx ADHD REASON FOR ADMISSION: Patient is a 43 -year-old , male, with a history of depression, ADHD, and abdominal migraines who was sent by his [facility] therapist, Nuria, (regularly sees Neva at [facility] but currently on vacation) and admitted to taking extra sleeping pills over the weekend for no specific reason. Pt stated that he didn't know what was causing his depression, whether it be all the recent med changes he's been going thru, life stressors, or both. States recently he was first taking amitriptyline but caused worsening of abdominal migraines so switched to nortriptyline 2wks ago but had to stop taking due to worsening of abdominal migraines causing his appetite to be poor. Pt also stated in the ED that he recently had a friend move in with him after living for years alone which caused him to feel happier due to the company and someone to talk to but that a mutual friend 'convinced' his roommate to move in with him causing the pt to feel betrayed and hurt by the mutual friend. Pt was tearful and anxious in the ED. Stated his sleep has been erratic. CONSULTANTS INVOLVED: none TEST RESULTS: depakote level 48.4 TREATMENT AND PROGRESS ON THE UNIT : Pt was admitted to [facility], seen for psychiatric assessment and restarted on his outpatient medication trintellix and mydayis that he brought from home and depakote for migraines. His nortriptyline was discontinued due to stomach pain and he was started on remeron increased to 45mg qhs that he tolerated well and found beneficial. He was provided benadryl 50mg qhs prn insomnia. Pt found his medications beneficial and tolerated them well. He attended groups daily during his stay. His symptoms greatly improved with treatment. On day of discharge he denied depression, anxiety, insomnia, SI/HI, hallucinations, delusions. He was discharged home with follow-up at [facility]. He felt safe for discharge. DISCHARGE ASSESSMENT: Pt seen and states mood is "good" and thinks his meds are very beneficial and he's tolerating them well. States he's looking forward to bring discharged home as his sabbatical and medical leave were approved thru [facility]. States he's less upset about his roommate leaving and says they can still be friends and will let his roommate know that his "door is always open" if he wants to more back. 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 Appears more bright and motivated. States he's attending groups and finding them beneficial. States his overall body pain is improved. States he's sleeping well at night. Denies epression, anxiety, insomnia, SI/HI, hallucinations, delusions. Feels safe to be discharged home. MENTAL STATUS EXAMINATION ON DISCHARGE: General Appearance: clean, appears stated age, own clothing Build: average Demeanor: average, calm Eye Contact: average Activity: average, calm Behavior: cooperative Speech: clear, spontaneous, normal volume, reg/rate,rhythm,volume Mood: euthymic, full, bright Mood "good" Affect: euthymic, full, bright Thought Process: logical/linear, depressed, intact Thought Content (Delusions): none reported, denies SI, HI, AVH Thought Content (Other): none reported, appropriate Thought Content (Aggressive): none reported Perception (Hallucinations): none reported Perception (Other): none reported Cognition (Impairment of): none reported Cognition(Intelligence Est.): average Oriented: Awake, Alert, Oriented times three Insight: good Judgment: good Psychosis: Denies MEDICATIONS ON DISCHARGE: remeron 45mg qhs mydayis outpatient dose trintellix outpatient dose depakote 1000mg qhs benadryl 50mg qhs prn insomnia PLAN/FOLLOWUP ARRANGEMENTS: D/c home with follow-up at [facility]. The amount of time spent in the coordination of care for this patient was approximately 30 minutes. Vital Signs/I&Os Vital Signs Date Time Temp Pulse Resp B/P (MAP) Pulse Ox O2 Delivery O2 Flow Rate FiO2 10/25/18 08:26 61 126/75 10/25/18 06:46 98.1 14 Laboratory Data Labs 24H Laboratory Tests 2 10/24/18 09:43: Valproic Acid (Depakene) Level 61.9 Microbiology Microbiology 10/18/18 Gastrointestinal Tract Panel (PCR) - Final, Complete Medications Scheduled (Mydayis 25 mg) 1 Cap Cap, 25 MG PO DAILY, (Reported) Atenolol (Atenolol) 100 Mg Tab, 100 MG PO DAILY, (Reported) Cetirizine HCl (Cetirizine HCl) 10 Mg Tab, 10 MG PO QHS, (Reported) Diclofenac Sodium (Diclofenac Sodium Dr) 50 Mg Tab, 50 MG PO BID, (Reported) Divalproex Sodium (Divalproex Sodium ER) 500 Mg Tab, 1,000 MG PO QHS, (Reported) Mirtazapine (Mirtazapine) 15 Mg Tab, 45 MG PO QHS for mood, #30 Montelukast Sodium (Montelukast Sodium) 10 Mg Tab, 10 MG PO QHS, (Reported) Multivitamins *[facility] STOCKED* (Thera M Plus *[facility] STOCKED*) 1 Tab Tab, 1 TAB PO QHS, (Reported) Omeprazole (Omeprazole) 40 Mg Cap, 40 MG PO DAILY, (Reported) Vitamin D (Drisdol) 50,000 Unit Cap, 50,000 UNIT PO 1XWK, (Reported) WEDNESDAY NIGHTS Vortioxetine Hydrobromide (Trintellix) 20 Mg Tab, 20 MG PO QHS, (Reported) Scheduled PRN Diphenhydramine HCl (Diphenhydramine HCl) 50 Mg Cap, 50 MG PO QHSP PRN for INSOMNIA, #10 Allergies Coded Allergies: Patten (Verified Allergy, Unknown, 10/17/18) CHRISTINE MORILLO DO Oct 25, 2018 9:00 am
[2018-10-25] MEDS ORDERED: DIPH50CA PO (09:02)
[2018-10-25] MEDS ORDERED: MIRT15TA3 PO (09:02)
== END 2018-10-25 12:22 | disposition home or self-care (01) | DRG 885 ==
LOC: M ED 15:21 → M ED INP 19:37 → M PSY 21:32
PROVIDERS: ADMIT Psychiatry & Neurology Psychiatry; ATTEND Psychiatry & Neurology Psychiatry
DX: F33.2 Major depressive disorder, recurrent severe without psychotic features (principal); Z91.013 Allergy to seafood; F41.9 Anxiety disorder, unspecified; G47.33 Obstructive sleep apnea (adult) (pediatric); E66.9 Obesity, unspecified; K21.9 Gastro-esophageal reflux disease without esophagitis; M54.5 Low back pain; I10 Essential (primary) hypertension; J30.9 Allergic rhinitis, unspecified; Z68.31 Body mass index [BMI] 31.0-31.9, adult; F17.200 Nicotine dependence, unspecified, uncomplicated; G43.D0 Abdominal migraine, not intractable; Z79.899 Other long term (current) drug therapy

== ENCOUNTER → 2018-12-19 | Outpatient (REF) | payer OTHER ==
[~2018-12-19] MED LIST: ATEN100T PO; BRIN1TAB3 PO; CETI10TA PO; DICL50TAB PO; DIPH50CA PO; DIVA500T9 PO; DRIS50003 PO; MIRT15TA3 PO; MONT10TA2 PO; MULTCAP PO; MYDA1CAP PO; NORT25CA2 PO; OMEP40CA2 PO; VITA200028 PO; VITMTA PO
[2018-12-20 14:16] LABS: RNP ANTIBODY < 0.2 AI (0.0-0.9); SMITHS ANTIBODY < 0.2 AI (0.0-0.9); SSA SJOGRENS A <0.2 AI (0.0-0.9); SSB SJOGRENS B <0.2 AI (0.0-0.9)
[2018-12-22 00:07] LABS: ANA (HEP2) Negative (.); ANTI JO-1 ANTIBODIES <0.2 AI (0.0-0.9); CYCLIC CITRULLINATED PEPTIDE 4 units (0-19)
== END ==
LOC: M SFHCPLAZ 09:13
PROVIDERS: ATTEND Internal Medicine Rheumatology
DX: M79.10 Myalgia, unspecified site (principal)

== ENCOUNTER → 2019-01-10 | Outpatient (CLI) | payer OTHER ==
--- NOTE | 2019-01-10 14:24 | REP ---
Clinical: Cough . Comparison: 09/27/2017 . Technique: PA and lateral. Findings: The mediastinum and cardiac silhouette are normal. The lung nguyễn are clear and without acute consolidation, effusion, or pneumothorax. The skeletal structures are intact and normal. Impression: 1. No acute cardiopulmonary process. Electronically Signed by Kenton Azul MD 01/10/2019 02:16 P
== END ==
LOC: M WUC 14:04
PROVIDERS: ATTEND Physician Assistant
DX: R05 Cough (principal)

== ENCOUNTER → 2019-04-05 | Outpatient (CLI) | payer OTHER ==
[2019-04-05 17:35] LABS: BASO % 0.5 % (0.0-1.0); EOS # 0.3 10^3/uL (0.0-0.50); EOS % 5.1 % (0.0-3.0); HEMATOCRIT 46.4 % (42.0-52.0); HEMOGLOBIN 15.9 g/dl (13.5-17.5); LYMPH # 2.2 10^3/uL (1.5-4.5); LYMPH % 33.7 % (24.0-44.0); MEAN CORPUSCULAR HEMOGLOBIN 30.9 pg (27.0-33.0); MEAN CORPUSCULAR HGB CONC 34.3 g/dl (32.0-36.5); MEAN CORPUSCULAR VOLUME 90.3 fl (80.0-96.0); MONO # 0.9 10^3/uL (0.0-0.8); MONO % 13.8 % (0.0-5.0); NEUTROPHILS % 46.3 % (36.0-66.0); PLATELET COUNT, AUTOMATED 215 10^3/uL (150-450); RED BLOOD COUNT 5.14 10^6/uL (4.30-6.10); WHITE BLOOD COUNT 6.4 10^3/uL (4.0-10.0)
[2019-04-05 17:59] LABS: ALT/SGPT 109 U/L (12-78); BILIRUBIN,TOTAL 0.5 MG/DL (0.2-1.0); BLOOD UREA NITROGEN 15 MG/DL (7-18); CALCIUM LEVEL 9.7 MG/DL (8.5-10.1); CARBON DIOXIDE LEVEL 31 MEQ/L (21-32); CHLORIDE LEVEL 107 MEQ/L (98-107); CHOLESTEROL LEVEL 245 MG/DL (<200); CHOLESTEROL RISK RATIO 7.424 (<5); CREATININE FOR GFR 1.32 MG/DL (0.70-1.30); FREE T4 1.06 NG/DL (0.76-1.46); GLOMERULAR FILTRATION RATE > 60.0 (>60); GLUCOSE, FASTING 90 MG/DL (70-100); HDL CHOLESTEROL 33 MG/DL (>40); NON-HDL-C 212 MG/DL; POTASSIUM SERUM 4.5 MEQ/L (3.5-5.1); SODIUM LEVEL 143 MEQ/L (136-145); TOTAL PROTEIN 7.4 GM/DL (6.4-8.2); TRIGLYCERIDES LEVEL 490 MG/DL (<150)
== END ==
LOC: M WUC 14:16
PROVIDERS: ATTEND Family Medicine
DX: Z13.0 Encounter for screening for diseases of the blood and blood-forming organs and certain disorders involving the immune mechanism (principal); Z13.29 Encounter for screening for other suspected endocrine disorder; Z13.220 Encounter for screening for lipoid disorders

== ENCOUNTER → 2019-06-29 | Outpatient (CLI) | payer OTHER ==
[~2019-06-29] MED LIST changes: -OMEP40CA2 PO; +OMEP40CA97 PO
[2019-06-29 20:07] LABS: BASO % 0.5 % (0.0-1.0); EOS # 0.3 10^3/uL (0.0-0.5); EOS % 3.8 % (0.0-3.0); HEMATOCRIT 47.6 % (42.0-52.0); HEMOGLOBIN 16.4 g/dl (13.5-17.5); LYMPH # 2.1 10^3/uL (1.5-5.0); LYMPH % 32.2 % (24.0-44.0); MEAN CORPUSCULAR HEMOGLOBIN 31.4 pg (27.0-33.0); MEAN CORPUSCULAR HGB CONC 34.5 g/dl (32.0-36.5); MONO # 0.8 10^3/uL (0.0-0.8); NEUTROPHILS # 3.4 10^3/uL (1.5-8.5); NEUTROPHILS % 51.2 % (36.0-66.0); PLATELET COUNT, AUTOMATED 252 10^3/uL (150-450); RED BLOOD COUNT 5.23 10^6/uL (4.30-6.10); WHITE BLOOD COUNT 6.6 10^3/uL (4.0-10.0)
[2019-06-29 20:15] LABS: ALBUMIN 3.9 GM/DL (3.2-5.2); ALT/SGPT 173 U/L (12-78); BILIRUBIN,TOTAL 0.5 MG/DL (0.2-1.0); BLOOD UREA NITROGEN 16 MG/DL (7-18); CALCIUM LEVEL 9.3 MG/DL (8.5-10.1); CARBON DIOXIDE LEVEL 27 MEQ/L (21-32); CHLORIDE LEVEL 106 MEQ/L (98-107); CREATININE FOR GFR 1.31 MG/DL (0.70-1.30); GLOMERULAR FILTRATION RATE > 60.0 (>60); GLUCOSE, FASTING 79 MG/DL (70-100); LDH LACTATE DEHYDROGENASE 221 U/L (87-241); POTASSIUM SERUM 4.4 MEQ/L (3.5-5.1); SODIUM LEVEL 142 MEQ/L (136-145); TOTAL PROTEIN 7.8 GM/DL (6.4-8.2)
== END ==
LOC: M WUC 16:12
PROVIDERS: ATTEND Physician Assistant
DX: R59.0 Localized enlarged lymph nodes (principal)

== ENCOUNTER → 2019-07-05 | Outpatient (REF) | payer OTHER | LOC: M LAB REF 17:21 | PROVIDERS: ATTEND Dermatology | DX: D23.39 Other benign neoplasm of skin of other parts of face (principal); D22.62 Melanocytic nevi of left upper limb, including shoulder ==

== ENCOUNTER → 2019-07-12 | Outpatient (CLI) | payer OTHER ==
[2019-07-12 20:15] LABS: BASO % 0.3 % (0.0-1.0); EOS # 0.3 10^3/uL (0.0-0.5); EOS % 4.1 % (0.0-3.0); HEMATOCRIT 46.2 % (42.0-52.0); HEMOGLOBIN 15.7 g/dl (13.5-17.5); LYMPH # 2.3 10^3/uL (1.5-5.0); LYMPH % 37.9 % (24.0-44.0); MEAN CORPUSCULAR HEMOGLOBIN 30.8 pg (27.0-33.0); MEAN CORPUSCULAR VOLUME 90.8 fl (80.0-96.0); MONO # 0.7 10^3/uL (0.0-0.8); MONO % 11.5 % (0.0-5.0); NEUTROPHILS # 2.8 10^3/uL (1.5-8.5); NEUTROPHILS % 45.7 % (36.0-66.0); PLATELET COUNT, AUTOMATED 248 10^3/uL (150-450); RED BLOOD COUNT 5.09 10^6/uL (4.30-6.10); WHITE BLOOD COUNT 6.1 10^3/uL (4.0-10.0)
[2019-07-12 20:21] LABS: ALBUMIN 3.9 GM/DL (3.2-5.2); ALT/SGPT 129 U/L (12-78); BILIRUBIN,TOTAL 0.4 MG/DL (0.2-1.0); BLOOD UREA NITROGEN 13 MG/DL (7-18); CALCIUM LEVEL 9.6 MG/DL (8.5-10.1); CARBON DIOXIDE LEVEL 30 MEQ/L (21-32); CHLORIDE LEVEL 109 MEQ/L (98-107); CREATININE FOR GFR 1.35 MG/DL (0.70-1.30); GLOMERULAR FILTRATION RATE > 60.0 (>60); GLUCOSE, FASTING 89 MG/DL (70-100); POTASSIUM SERUM 4.4 MEQ/L (3.5-5.1); SODIUM LEVEL 143 MEQ/L (136-145); TOTAL PROTEIN 7.6 GM/DL (6.4-8.2)
[2019-07-12 20:30] LABS: MONO SCRN NEGATIVE (NEGATIVE)
[2019-07-14 09:41] LABS: HEPATITIS B SURFACE ANTIGEN NEGATIVE (NEGATIVE)
[2019-07-14 10:40] LABS: HEPATITIS C VIRUS ABY INDEX 0.1 INDEX (<0.8)
[2019-07-14 10:41] LABS: HEPATITIS B CORE ANTIBODY IGM NEGATIVE (NEGATIVE)
[2019-07-14 10:42] LABS: HEPATITIS A ANTIBODY IGM NEGATIVE (NEGATIVE)
== END ==
LOC: M WUC 15:55
PROVIDERS: ATTEND Physician Assistant
DX: R59.0 Localized enlarged lymph nodes (principal); R94.5 Abnormal results of liver function studies

== ENCOUNTER → 2019-08-31 | Outpatient (CLI) | payer OTHER ==
[2019-08-31 16:29] LABS: VALPROIC ACID (DEPAKOTE) 52.8 UG/ML (50.0-100.0)
== END ==
LOC: M WUC 11:01
PROVIDERS: ATTEND Physician Assistant Medical
DX: G43.909 Migraine, unspecified, not intractable, without status migrainosus (principal)

== ENCOUNTER → 2019-08-31 | Outpatient (CLI) | payer OTHER ==
[2019-08-31 16:36] LABS: ALBUMIN 4.1 GM/DL (3.2-5.2); ALT/SGPT 125 U/L (12-78); BILIRUBIN,TOTAL 0.5 MG/DL (0.2-1.0); BLOOD UREA NITROGEN 16 MG/DL (7-18); CALCIUM LEVEL 9.4 MG/DL (8.5-10.1); CARBON DIOXIDE LEVEL 29 MEQ/L (21-32); CHLORIDE LEVEL 107 MEQ/L (98-107); CHOLESTEROL LEVEL 246 MG/DL (<200); CHOLESTEROL RISK RATIO 8.482 (<5); CREATININE FOR GFR 1.33 MG/DL (0.70-1.30); GLOMERULAR FILTRATION RATE > 60.0 (>60); GLUCOSE, FASTING 88 MG/DL (70-100); HDL CHOLESTEROL 29 MG/DL (>40); NON-HDL-C 217 MG/DL; POTASSIUM SERUM 4.3 MEQ/L (3.5-5.1); SODIUM LEVEL 143 MEQ/L (136-145); TOTAL PROTEIN 7.5 GM/DL (6.4-8.2); TRIGLYCERIDES LEVEL 404 MG/DL (<150)
== END ==
LOC: M WUC 10:58
PROVIDERS: ATTEND Physician Assistant
DX: E78.1 Pure hyperglyceridemia (principal)

== ENCOUNTER → 2019-09-11 | Outpatient (CLI) | payer OTHER ==
--- NOTE | 2019-09-12 01:42 | REP ---
Clinical: Bilateral axillary adenopathy. Technique: Real time fitzpatrick scale ultrasound examination using linear high frequency transducer. Findings: Ultrasound examination of the bilateral axillary regions demonstrates no obvious adenopathy, mass, or abnormal fluid collection. Impression: Normal examination. No mass or adenopathy appreciated. Electronically Signed by Kenton Azul MD 09/12/2019 01:33 A
== END ==
LOC: M RAD 14:37
PROVIDERS: ATTEND Family Medicine
DX: R59.0 Localized enlarged lymph nodes (principal)

== ENCOUNTER → 2019-09-27 | Outpatient (CLI) | payer OTHER ==
[~2019-09-27] MED LIST changes: -MONT10TA2 PO; +MONT10TA4 PO
[2019-09-27 16:39] LABS: BASO % 0.5 % (0.0-1.0); EOS # 0.4 10^3/uL (0.0-0.5); EOS % 4.3 % (0.0-3.0); HEMATOCRIT 46.7 % (42.0-52.0); HEMOGLOBIN 15.5 g/dl (13.5-17.5); LYMPH # 2.6 10^3/uL (1.5-5.0); LYMPH % 32.3 % (24.0-44.0); MEAN CORPUSCULAR HEMOGLOBIN 30.5 pg (27.0-33.0); MEAN CORPUSCULAR HGB CONC 33.2 g/dl (32.0-36.5); MEAN CORPUSCULAR VOLUME 91.9 fl (80.0-96.0); MONO % 11.8 % (0.0-5.0); NEUTROPHILS # 4.1 10^3/uL (1.5-8.5); NEUTROPHILS % 50.5 % (36.0-66.0); PLATELET COUNT, AUTOMATED 226 10^3/uL (150-450); RED BLOOD COUNT 5.08 10^6/uL (4.30-6.10); WHITE BLOOD COUNT 8.1 10^3/uL (4.0-10.0)
[2019-09-27 17:13] LABS: ALBUMIN 4.1 GM/DL (3.2-5.2); ALT/SGPT 124 U/L (12-78); BILIRUBIN,TOTAL 0.5 MG/DL (0.2-1.0); BLOOD UREA NITROGEN 20 MG/DL (7-18); CALCIUM LEVEL 9.5 MG/DL (8.5-10.1); CARBON DIOXIDE LEVEL 28 MEQ/L (21-32); CHLORIDE LEVEL 108 MEQ/L (98-107); CHOLESTEROL LEVEL 167 MG/DL (<200); CHOLESTEROL RISK RATIO 5.758 (<5); CREATININE FOR GFR 1.26 MG/DL (0.70-1.30); FREE T4 1.18 NG/DL (0.76-1.46); GLOMERULAR FILTRATION RATE > 60.0 (>60); GLUCOSE, FASTING 73 MG/DL (70-100); HDL CHOLESTEROL 29 MG/DL (>40); LDL CHOLESTEROL 78 MG/DL (<100); NON-HDL-C 138 MG/DL; POTASSIUM SERUM 4.4 MEQ/L (3.5-5.1); SODIUM LEVEL 143 MEQ/L (136-145); TOTAL PROTEIN 7.3 GM/DL (6.4-8.2); TRIGLYCERIDES LEVEL 299 MG/DL (<150)
[2019-09-27 17:17] LABS: TOTAL 25(OH) VITAMIN D 63.8 NG/ML (30.0-100.0)
== END ==
LOC: M WUC 14:49
PROVIDERS: ATTEND Family Medicine
DX: E55.9 Vitamin D deficiency, unspecified (principal); E78.1 Pure hyperglyceridemia; K75.81 Nonalcoholic steatohepatitis (NASH); R59.0 Localized enlarged lymph nodes

== ENCOUNTER → 2020-01-30 | Outpatient (CLI) | payer OTHER ==
[2020-01-30 16:41] LABS: BASO % 0.4 % (0.0-1.0); EOS # 0.5 10^3/uL (0.0-0.5); EOS % 6.6 % (0.0-3.0); HEMATOCRIT 47.2 % (42.0-52.0); LYMPH # 1.9 10^3/uL (1.5-5.0); LYMPH % 26.6 % (24.0-44.0); MEAN CORPUSCULAR HEMOGLOBIN 30.3 pg (27.0-33.0); MEAN CORPUSCULAR HGB CONC 33.9 g/dl (32.0-36.5); MEAN CORPUSCULAR VOLUME 89.4 fl (80.0-96.0); MONO # 0.8 10^3/uL (0.0-0.8); MONO % 11.4 % (0.0-5.0); NEUTROPHILS # 3.8 10^3/uL (1.5-8.5); NEUTROPHILS % 54.6 % (36.0-66.0); PLATELET COUNT, AUTOMATED 226 10^3/uL (150-450); RED BLOOD COUNT 5.28 10^6/uL (4.30-6.10)
[2020-01-30 17:08] LABS: ALBUMIN 4.1 GM/DL (3.2-5.2); ALT/SGPT 109 U/L (12-78); BILIRUBIN,TOTAL 0.7 MG/DL (0.2-1.0); BLOOD UREA NITROGEN 19 MG/DL (7-18); CALCIUM LEVEL 9.6 MG/DL (8.5-10.1); CARBON DIOXIDE LEVEL 26 MEQ/L (21-32); CHLORIDE LEVEL 108 MEQ/L (98-107); CHOLESTEROL LEVEL 203 MG/DL (<200); CHOLESTEROL RISK RATIO 7.807 (<5); CREATININE FOR GFR 1.63 MG/DL (0.70-1.30); FREE T4 1.33 NG/DL (0.76-1.46); GLOMERULAR FILTRATION RATE 48.9 (>60); GLUCOSE, FASTING 92 MG/DL (70-100); HDL CHOLESTEROL 26 MG/DL (>40); NON-HDL-C 177 MG/DL; POTASSIUM SERUM 4.4 MEQ/L (3.5-5.1); SODIUM LEVEL 141 MEQ/L (136-145); TOTAL PROTEIN 8.1 GM/DL (6.4-8.2); TRIGLYCERIDES LEVEL 444 MG/DL (<150)
== END ==
LOC: M LABNEURO 16:01 → M LAB 16:01
PROVIDERS: ATTEND Family Medicine
DX: E78.1 Pure hyperglyceridemia (principal); F33.2 Major depressive disorder, recurrent severe without psychotic features

== ENCOUNTER → 2020-04-10 | Outpatient (REF) | payer OTHER | LOC: M LAB REF 13:15 → MERGE 13:15 | PROVIDERS: ATTEND Physician Assistant | DX: D18.01 Hemangioma of skin and subcutaneous tissue (principal); L85.9 Epidermal thickening, unspecified ==

== ENCOUNTER → 2020-06-13 | Outpatient (CLI) | payer OTHER ==
[2020-06-13 16:38] LABS: C REACTIVE PROTEIN QUANTITATIV 0.79 MG/DL (0.00-0.30); URIC ACID 5.5 MG/DL (3.5-7.2)
--- NOTE | 2020-06-13 17:28 | REP ---
INDICATION: PAIN COMPARISON: None. TECHNIQUE: AP, lateral views of the right ankle FINDINGS: Lateral soft tissue swelling is suggested. No acute fracture or dislocation identified. IMPRESSION: Lateral swelling.. No acute fracture or dislocation. <Electronically signed by Kenton Azul > 06/13/20 [id number]
--- NOTE | 2020-06-13 17:30 | REP ---
INDICATION: PAIN COMPARISON: None. TECHNIQUE: AP, lateral, bilateral oblique views right foot. FINDINGS: Generalized age-related changes are appreciated. No obvious acute fracture or dislocation. Soft tissue swelling suggested without subcutaneous emphysema or foreign body. IMPRESSION: Mild generalized soft tissue swelling.. No acute fracture or dislocation. <Electronically signed by Kenton Azul > 06/13/20 [id number]
[2020-06-15 17:07] LABS: Lyme Disease IgG/IgM Antibodie <0.91 ISR (0.00-0.90); Lyme Disease IgM Ab Quantitati <0.80 index (0.00-0.79)
== END ==
LOC: M WUC 13:46 → MERGE 13:46
PROVIDERS: ATTEND Family Medicine
DX: M79.671 Pain in right foot (principal); M79.89 Other specified soft tissue disorders

== ENCOUNTER → 2020-06-19 | Outpatient (CLI) | payer OTHER | LOC: M WUC 16:04 | PROVIDERS: ATTEND Physician Assistant Medical | DX: Z51.81 Encounter for therapeutic drug level monitoring (principal); Z79.899 Other long term (current) drug therapy ==

== ENCOUNTER → 2020-06-19 | Outpatient (CLI) | payer OTHER ==
[2020-06-19 20:01] LABS: BASO % 0.6 % (0.0-1.0); EOS # 0.2 10^3/uL (0.0-0.5); EOS % 3.4 % (0.0-3.0); HEMATOCRIT 45.1 % (42.0-52.0); HEMOGLOBIN 15.1 g/dl (13.5-17.5); LYMPH # 2.4 10^3/uL (1.5-5.0); LYMPH % 36.7 % (24.0-44.0); MEAN CORPUSCULAR HEMOGLOBIN 30.8 pg (27.0-33.0); MEAN CORPUSCULAR HGB CONC 33.5 g/dl (32.0-36.5); MEAN CORPUSCULAR VOLUME 91.9 fl (80.0-96.0); MONO # 0.7 10^3/uL (0.0-0.8); MONO % 11.3 % (0.0-5.0); NEUTROPHILS # 3.1 10^3/uL (1.5-8.5); NEUTROPHILS % 47.5 % (36.0-66.0); PLATELET COUNT, AUTOMATED 264 10^3/uL (150-450); RED BLOOD COUNT 4.91 10^6/uL (4.30-6.10); WHITE BLOOD COUNT 6.5 10^3/uL (4.0-10.0)
[2020-06-19 20:12] LABS: ALBUMIN 3.7 GM/DL (3.2-5.2); ALT/SGPT 72 U/L (12-78); BILIRUBIN,TOTAL 0.3 MG/DL (0.2-1.0); BLOOD UREA NITROGEN 12 MG/DL (7-18); CALCIUM LEVEL 9.5 MG/DL (8.5-10.1); CARBON DIOXIDE LEVEL 26 MEQ/L (21-32); CHLORIDE LEVEL 108 MEQ/L (98-107); CHOLESTEROL LEVEL 181 MG/DL (<200); CHOLESTEROL RISK RATIO 5.484 (<5); CREATININE FOR GFR 1.13 MG/DL (0.70-1.30); FREE T4 1.12 NG/DL (0.76-1.46); GLOMERULAR FILTRATION RATE > 60.0 (>60); GLUCOSE, FASTING 83 MG/DL (70-100); HDL CHOLESTEROL 33 MG/DL (>40); LDL CHOLESTEROL 94 MG/DL (<100); NON-HDL-C 148 MG/DL; POTASSIUM SERUM 4.4 MEQ/L (3.5-5.1); SODIUM LEVEL 140 MEQ/L (136-145); TOTAL PROTEIN 7.3 GM/DL (6.4-8.2); TRIGLYCERIDES LEVEL 272 MG/DL (<150)
[2020-06-21 23:07] LABS: PSA TOTAL 0.8 ng/mL (0.0-4.0)
== END ==
LOC: M WUC 15:58
PROVIDERS: ATTEND Physician Assistant
DX: Z00.00 Encounter for general adult medical examination without abnormal findings (principal); I10 Essential (primary) hypertension; G47.33 Obstructive sleep apnea (adult) (pediatric); E78.1 Pure hyperglyceridemia; F33.2 Major depressive disorder, recurrent severe without psychotic features; Z12.5 Encounter for screening for malignant neoplasm of prostate

== ENCOUNTER → 2020-12-26 | Outpatient (CLI) | payer OTHER ==
[~2020-12-26] MED LIST changes: +MONT10TA10 PO; -MONT10TA4 PO
[2020-12-26 16:17] LABS: BASO # 0.1 10^3/uL (0.0-0.2); BASO % 0.9 % (0.0-1.0); EOS # 0.3 10^3/uL (0.0-0.5); EOS % 3.8 % (0.0-3.0); HEMATOCRIT 45.9 % (42.0-52.0); HEMOGLOBIN 15.7 g/dl (13.5-17.5); LYMPH # 2.2 10^3/uL (1.5-5.0); LYMPH % 32.2 % (24.0-44.0); MEAN CORPUSCULAR HEMOGLOBIN 30.7 pg (27.0-33.0); MEAN CORPUSCULAR HGB CONC 34.2 g/dl (32.0-36.5); MEAN CORPUSCULAR VOLUME 89.6 fl (80.0-96.0); MONO # 0.9 10^3/uL (0.0-0.8); NEUTROPHILS # 3.4 10^3/uL (1.5-8.5); NEUTROPHILS % 49.4 % (36.0-66.0); PLATELET COUNT, AUTOMATED 260 10^3/uL (150-450); RED BLOOD COUNT 5.12 10^6/uL (4.30-6.10); WHITE BLOOD COUNT 6.8 10^3/uL (4.0-10.0)
[2020-12-26 16:46] LABS: ALBUMIN 4.1 GM/DL (3.2-5.2); ALT/SGPT 140 U/L (12-78); BILIRUBIN,TOTAL 0.5 MG/DL (0.2-1.0); BLOOD UREA NITROGEN 16 MG/DL (7-18); CALCIUM LEVEL 9.4 MG/DL (8.5-10.1); CARBON DIOXIDE LEVEL 24 MEQ/L (21-32); CHLORIDE LEVEL 108 MEQ/L (98-107); CREATININE FOR GFR 1.33 MG/DL (0.70-1.30); GLOMERULAR FILTRATION RATE > 60.0 (>60); GLUCOSE, FASTING 94 MG/DL (70-100); POTASSIUM SERUM 4.1 MEQ/L (3.5-5.1); SODIUM LEVEL 140 MEQ/L (136-145); TOTAL PROTEIN 7.8 GM/DL (6.4-8.2); VALPROIC ACID (DEPAKOTE) 29.2 UG/ML (50.0-100.0)
== END ==
LOC: M WUC 11:51
PROVIDERS: ATTEND Physician Assistant Medical
DX: Z51.81 Encounter for therapeutic drug level monitoring (principal); Z79.899 Other long term (current) drug therapy; G43.909 Migraine, unspecified, not intractable, without status migrainosus

== ENCOUNTER 2021-01-06 14:39 | Emergency (ER) | payer OTHER ==
[~2021-01-06] VITALS: Ht 177.8 cm; Wt 116.8 kg
[2021-01-06 16:50] LABS: BASO % 0.6 % (0.0-1.0); EOS # 0.3 10^3/uL (0.0-0.5); EOS % 4.7 % (0.0-3.0); HEMOGLOBIN 15.5 g/dl (13.5-17.5); LYMPH # 2.1 10^3/uL (1.5-5.0); LYMPH % 31.3 % (24.0-44.0); MEAN CORPUSCULAR HEMOGLOBIN 30.6 pg (27.0-33.0); MEAN CORPUSCULAR HGB CONC 34.4 g/dl (32.0-36.5); MEAN CORPUSCULAR VOLUME 88.9 fl (80.0-96.0); MONO # 0.8 10^3/uL (0.0-0.8); MONO % 11.5 % (2.0-8.0); NEUTROPHILS # 3.4 10^3/uL (1.5-8.5); NEUTROPHILS % 51.4 % (36.0-66.0); PLATELET COUNT, AUTOMATED 225 10^3/uL (150-450); RED BLOOD COUNT 5.06 10^6/uL (4.30-6.10); WHITE BLOOD COUNT 6.5 10^3/uL (4.0-10.0)
--- NOTE | 2021-01-06 16:59 | REP ---
INDICATION: diffuse abdominal pain x 2 mos COMPARISON: 06/23/2017 TECHNIQUE: Axial noncontrast images from the lung bases to the pubic symphysis with coronal and sagittal reformations. This CT examination was performed using the following dose reduction techniques: Automated exposure control, adjustment of mA and/or kv according to the patient's size, and use of iterative reconstruction technique. FINDINGS: Lung bases are clear. Visualized heart and pericardium normal. Liver is enlarged and demonstrates diffuse fatty infiltration with stable benign hemangioma in the left lobe. Spleen, pancreas, gallbladder, bilateral adrenal glands and kidneys are essentially normal for noncontrast evaluation. The enteric system is without obstruction or obvious acute inflammatory process. Scattered colonic and sigmoid diverticula noted without acute diverticulitis. Normal terminal ileum and appendix are identified in the right lower quadrant. Pelvis demonstrates normal bladder and age-appropriate prostate/seminal vesicles. Surgical clips suggest prior left inguinal hernia repair. No ascites. No free air. No significant adenopathy. Abdominal aorta without aneurysm. Musculoskeletal structures demonstrate degenerative changes to the lumbosacral spine. IMPRESSION: No acute abdominopelvic pathology appreciated. Hepatomegaly and hepatosteatosis again noted. <Electronically signed by Kenton Azul > 01/06/21 [id number]
[2021-01-06 17:25] LABS: ALBUMIN 3.9 GM/DL (3.2-5.2); ALT/SGPT 228 U/L (12-78); BILIRUBIN,TOTAL 0.8 MG/DL (0.2-1.0); BLOOD UREA NITROGEN 13 MG/DL (7-18); CALCIUM LEVEL 9.1 MG/DL (8.5-10.1); CARBON DIOXIDE LEVEL 26 MEQ/L (21-32); CHLORIDE LEVEL 104 MEQ/L (98-107); CREATININE FOR GFR 1.15 MG/DL (0.70-1.30); GLOMERULAR FILTRATION RATE > 60.0 (>60); GLUCOSE, FASTING 90 MG/DL (70-100); LIPASE 181 U/L (73-393); POTASSIUM SERUM 4.1 MEQ/L (3.5-5.1); SODIUM LEVEL 138 MEQ/L (136-145); TOTAL PROTEIN 7.6 GM/DL (6.4-8.2)
[2021-01-06] MEDS ORDERED: ZOFR4TAB16 PO (17:47)
[2021-01-06] MEDS ORDERED: ONDANSETRON 4MG/2ML VIAL IV ONE (17:50)
[2021-01-06 18:31] LABS: AMPHETAMINES LEVEL URINE POSITIVE (NEGATIVE); BARBITURATES URINE NEGATIVE (NEGATIVE); BENZODIAZEPINES URINE NEGATIVE (NEGATIVE); CANNABINOIDS URINE POSITIVE (NEGATIVE); COCAINE METABOLITE URINE NEGATIVE (NEGATIVE); METHADONE URINE NEGATIVE (NEGATIVE); OPIATES URINE NEGATIVE (NEGATIVE); PHENCYCLIDINE URINE NEGATIVE (NEGATIVE)
[2021-01-06 18:44] VITALS: BP 127/74
== END 2021-01-06 18:56 | disposition home or self-care (01) ==
LOC: M ED 14:39
DX: R10.11 Right upper quadrant pain (principal); R11.2 Nausea with vomiting, unspecified; K76.0 Fatty (change of) liver, not elsewhere classified; R16.2 Hepatomegaly with splenomegaly, not elsewhere classified; Z79.899 Other long term (current) drug therapy
CPT/HCPCS: 74176; 80053; 80307; 81001; 83690; 85025; 96374; 99284; J2405

== ENCOUNTER → 2021-02-12 | Outpatient (CLI) | payer OTHER ==
[~2021-02-12] MED LIST changes: +OMEP40CA4 PO; -OMEP40CA97 PO; +ZOFR4TAB16 PO
[2021-02-12 16:58] LABS: ALBUMIN 3.8 GM/DL (3.2-5.2); BILIRUBIN,DIRECT 0.1 MG/DL (0.0-0.2); BILIRUBIN,TOTAL 0.4 MG/DL (0.2-1.0); TOTAL PROTEIN 7.1 GM/DL (6.4-8.2)
== END ==
LOC: M WUC 10:31
PROVIDERS: ATTEND Physician Assistant
DX: R74.01 Elevation of levels of liver transaminase levels (principal)

== ENCOUNTER → 2021-03-06 | Outpatient (CLI) | payer OTHER ==
[2021-03-06 12:27] LABS: BASO # 0.1 10^3/uL (0.0-0.2); BASO % 0.9 % (0.0-1.0); EOS # 0.4 10^3/uL (0.0-0.5); EOS % 6.3 % (0.0-3.0); HEMATOCRIT 44.9 % (42.0-52.0); HEMOGLOBIN 15.1 g/dl (13.5-17.5); LYMPH # 2.5 10^3/uL (1.5-5.0); LYMPH % 42.5 % (24.0-44.0); MEAN CORPUSCULAR HEMOGLOBIN 29.9 pg (27.0-33.0); MEAN CORPUSCULAR HGB CONC 33.6 g/dl (32.0-36.5); MEAN CORPUSCULAR VOLUME 88.9 fl (80.0-96.0); MONO # 0.6 10^3/uL (0.0-0.8); MONO % 10.4 % (2.0-8.0); NEUTROPHILS # 2.3 10^3/uL (1.5-8.5); NEUTROPHILS % 39.4 % (36.0-66.0); PLATELET COUNT, AUTOMATED 192 10^3/uL (150-450); RED BLOOD COUNT 5.05 10^6/uL (4.30-6.10); WHITE BLOOD COUNT 5.8 10^3/uL (4.0-10.0)
[2021-03-07 13:12] LABS: ANTINUCLEAR ANTIBODIES DIRECT Negative (Negative); TISSUE TRANSGLUTAMINASE IgA <2 U/mL (0-3)
== END ==
LOC: M WUC 09:03
PROVIDERS: ATTEND Internal Medicine Gastroenterology
DX: K75.81 Nonalcoholic steatohepatitis (NASH) (principal)

== ENCOUNTER → 2021-03-06 | Outpatient (CLI) | payer OTHER ==
--- NOTE | 2021-03-06 08:31 | REP ---
INDICATION: RUQ PAIN. COMPARISON: Comparison is made with CT studies dated January 06, 2021 and June 23, 2017. Comparison sonography February 09, 2017.. TECHNIQUE: Right upper quadrant abdominal sonography. FINDINGS: Scanning through the right upper quadrant of the abdomen demonstrates 2 hypoechoic liver nodules the largest of which is in the left lobe measuring 2.0 x 2.0 x 2.7 cm. This has been seen on multiple prior studies and is slightly larger, having measured 1.6 x 1.6 x 1.0 cm in 2017 by ultrasound. The 2nd visible lesion by ultrasound today is in the right hepatic lobe measuring 1.5 x 1.1 x 1.4 cm. This lesion is felt to be unchanged. No other focal liver lesion is seen. The liver is hyperechoic diffusely consistent with fatty infiltration. Common bile duct is normal measuring 0.5 cm in greatest diameter. Images of the gallbladder demonstrate nonshadowing in mobile echogenic foci along the gallbladder wall consistent with small polyps. The largest of these is 0.45 cm in diameter. There is a questionable calculus in the gallbladder neck. No pericholecystic fluid is seen. The pancreas is obscured by abdominal gas. No right renal abnormality. Right kidney measures 12.3 x 6.9 x 5.2 cm. IMPRESSION: There are 2 visible hypoechoic liver lesions as described above. The left lobe lesion is slightly larger but neither is new. There is evidence of fatty infiltration of the liver as seen on CT. Possible gallstone and gallbladder wall polyps.. <Electronically signed by Eric Rios > 03/06/21 08
== END ==
LOC: M RAD 06:58
PROVIDERS: ATTEND Internal Medicine Gastroenterology
DX: K76.9 Liver disease, unspecified (principal); R10.11 Right upper quadrant pain

== ENCOUNTER → 2021-03-21 | Outpatient (CLI) | payer OTHER ==
[~2021-03-21] MED LIST changes: +ERGO500029 PO; +PROAAER10 INH; +ROSU5TAB5
== END ==
LOC: M LABSMTC 10:53
PROVIDERS: ATTEND Anesthesiology
DX: Z01.812 Encounter for preprocedural laboratory examination (principal)

== ENCOUNTER 2021-03-26 09:13 | Day surgery (SDC) | payer OTHER ==
[~2021-03-26] VITALS: Ht 180.3 cm; Wt 111.1 kg
[~2021-03-26 09:13] MED LIST changes: +NS 1,000 ML IV ONE
[2021-03-26] MEDS ORDERED: LIDOCAINE 2% 100MG/5ML SDV (FOR ANES.) As Ordered ONE (10:21)
[2021-03-26] MEDS ORDERED: propofoL 200 MG/20 ML VIAL As Ordered ONE (10:21)
[2021-03-26] MEDS ORDERED: fentaNYL 100 MCG/2 ML INJECTION (J3010) As Ordered ONE (10:22)
--- NOTE | 2021-03-26 11:06 | ROOR ---
Patient Name: Lamin Heard Procedure Date: 03/26/2021 10:50 AM Date of : 1975 Age: 45 Room: [facility] Gender: Male Note Status: Finalized Procedure: Upper Endoscopy + Biopsies Indications: Heartburn, Nausea with vomiting Providers: Reggie Rasmussen MD Referring MD: Keren RIVERA DO Requesting Provider: Medicines: Monitored Anesthesia Care Complications: No immediate complications. Procedure: Pre-Anesthesia Assessment: - The heart rate, respiratory rate, oxygen saturations, blood pressure, adequacy of pulmonary ventilation, and response to care were monitored throughout the procedure. The Endoscope was introduced through the mouth, and advanced to the second part of duodenum. The upper GI endoscopy was accomplished without difficulty. The patient tolerated the procedure well. Findings: The Z-line was regular and was found 40 cm from the incisors. Multiple biopsies were obtained with cold forceps for evaluation to rule out Mcconnell's Esophagus randomly at the gastroesophageal junction. Diffuse mild inflammation characterized by congestion (edema), erythema and linear erosions was found in the entire examined stomach. Biopsies were taken with a cold forceps for Helicobacter pylori testing. The exam of the duodenum was otherwise normal. Impression: - Z-line regular, 40 cm from the incisors. - Mucosal changes suspicious for gastritis. Biopsied. - Multiple biopsies were obtained at the gastroesophageal junction. - The examination was otherwise normal. Recommendation: - Patient has a contact number available for emergencies. The signs and symptoms of potential delayed complications were discussed with the patient. Return to normal activities tomorrow. Written discharge instructions were provided to the patient. - Resume previous diet. - Discharge patient to home. - Follow an antireflux regimen. - Continue present medications. - Await pathology results. - Telephone GI clinic for pathology results in 1 week. - Repeat upper endoscopy for surveillance based on pathology results. - Return to referring physician. - The findings and recommendations were discussed with the patient's family. Procedure Code(s): --- Professional --- 10151, Esophagogastroduodenoscopy, flexible, transoral; with biopsy, single or multiple Diagnosis Code(s): --- Professional --- K31.89, Other diseases of stomach and duodenum R12, Heartburn R11.2, Nausea with vomiting, unspecified CPT copyright 2019 [employer]. All rights reserved. The codes documented in this report are preliminary and upon advertising copywriter review may be revised to meet current compliance requirements. Reggie Rasmussen MD Reggie Rasmussen MD 03/26/2021 11:06:03 AM Electronically signed by Reggie Rasmussen MD Number of Addenda: 0 Note Initiated On: 03/26/2021 10:50 AM Estimated Blood Loss: Estimated blood loss: none.
--- NOTE | 2021-03-26 11:22 | ROOR ---
Patient Name: Lamin Heard Procedure Date: 03/26/2021 10:51 AM Date of : 1975 Age: 45 Room: [facility] Gender: Male Note Status: Finalized Procedure: Total Colonoscopy to Cecum + Cold Snare Polypectomy + Hemoclips Indications: High risk colon cancer surveillance: Personal history of colonic polyps Providers: Reggie Rasmussen MD Referring MD: Keren RIVERA DO Requesting Provider: Medicines: Monitored Anesthesia Care Complications: No immediate complications. Procedure: Pre-Anesthesia Assessment: - The heart rate, respiratory rate, oxygen saturations, blood pressure, adequacy of pulmonary ventilation, and response to care were monitored throughout the procedure. The Colonoscope was introduced through the anus and advanced to the cecum, identified by appendiceal orifice and ileocecal valve. The colonoscopy was performed without difficulty. The patient tolerated the procedure well. The quality of the bowel preparation was fair. Findings: The perianal and digital rectal examinations were normal. Non-bleeding internal hemorrhoids were found during retroflexion. The hemorrhoids were small and Grade I (internal hemorrhoids that do not prolapse). Two semi-sessile polyps were found in the cecum. The polyps were medium in size. These polyps were removed with a cold snare. Resection and retrieval were complete. To prevent bleeding after the polypectomy, two hemostatic clips were successfully placed. There was no bleeding at the end of the procedure. The exam was otherwise without abnormality on direct and retroflexion views. Impression: - Preparation of the colon was fair. - Non-bleeding internal hemorrhoids. - Two medium polyps in the cecum, removed with a cold snare. Resected and retrieved. Clips were placed. - The examination was otherwise normal on direct and retroflexion views. - The exam was otherwise normal to the cecum. Recommendation: - Patient has a contact number available for emergencies. The signs and symptoms of potential delayed complications were discussed with the patient. Return to normal activities tomorrow. Written discharge instructions were provided to the patient. - High fiber diet. - Discharge patient to home. - Continue present medications. - Await pathology results. - Telephone GI clinic for pathology results in 1 week. - Repeat colonoscopy for surveillance based on pathology results. - Return to referring physician. - The findings and recommendations were discussed with the patient's family. Procedure Code(s): --- Professional --- 48441, Colonoscopy, flexible; with removal of tumor(s), polyp(s), or other lesion(s) by snare technique Diagnosis Code(s): --- Professional --- Z86.010, Personal history of colonic polyps K64.0, First degree hemorrhoids K63.5, Polyp of colon CPT copyright 2019 [employer]. All rights reserved. The codes documented in this report are preliminary and upon deputy register of deeds review may be revised to meet current compliance requirements. Reggie Rasmussen MD Reggie Rasmussen MD 03/26/2021 11:22:08 AM Electronically signed by Reggie Rasmussen MD Number of Addenda: 0 Note Initiated On: 03/26/2021 10:51 AM Estimated Blood Loss: Estimated blood loss: none.
[2021-03-26 11:47] VITALS: BP 107/61
== END 2021-03-26 12:00 | disposition home or self-care (01) ==
LOC: M OPP 09:13
PROVIDERS: ATTEND Internal Medicine Gastroenterology
DX: Z12.11 Encounter for screening for malignant neoplasm of colon (principal); Z86.010 Personal history of colon polyps; D12.0 Benign neoplasm of cecum; K64.0 First degree hemorrhoids; K31.89 Other diseases of stomach and duodenum; R12 Heartburn; R11.2 Nausea with vomiting, unspecified; Z79.899 Other long term (current) drug therapy; Z91.013 Allergy to seafood; Z87.891 Personal history of nicotine dependence
CPT/HCPCS: 43239; 45385; 88305; J3010

== ENCOUNTER → 2021-05-07 | Outpatient (CLI) | payer OTHER ==
[~2021-05-07] MED LIST changes: -NS 1,000 ML IV ONE
--- NOTE | 2021-05-07 11:25 | REP ---
INDICATION: RIGHT UPPER QUAD PAIN. COMPARISON: Comparison sonography March 06, 2021. Comparison CT study January 06, 2021. TECHNIQUE/RADIOTRACER AND DOSE: 6.6 mCi of Technetium-99m mebrofenin was injected and sequential anterior images are acquired. The initial 60 minute imaging interval is supplemented by a right lateral and a 3 hour delayed anterior and right lateral view. FINDINGS: The initial hepatocellular parenchymal uptake phase is normal and homogeneous. Intra- and extra-hepatic bile ducts are labeled by the 10-minute image. The gallbladder is first labeled on the 60-minute right lateral image. There is normal washout from the liver parenchyma into the gallbladder and small intestine on subsequent images. The delayed right lateral view shows normal gallbladder uptake. IMPRESSION: Mildly delayed visualization of the gallbladder suggesting chronic cholecystitis. Otherwise negative hepatobiliary scan. <Electronically signed by Eric Rios > 05/07/21 112
== END ==
LOC: M RAD 08:08
PROVIDERS: ATTEND Surgery
DX: R10.11 Right upper quadrant pain (principal)
CPT/HCPCS: 78226; A9537

== ENCOUNTER → 2021-06-06 | Outpatient (CLI) | payer OTHER ==
[2021-06-06 15:59] LABS: BASO % 0.5 % (0.0-1.0); EOS # 0.4 10^3/uL (0.0-0.5); EOS % 4.4 % (0.0-3.0); HEMATOCRIT 46.9 % (42.0-52.0); HEMOGLOBIN 15.9 g/dl (13.5-17.5); LYMPH # 2.7 10^3/uL (1.5-5.0); LYMPH % 34.1 % (24.0-44.0); MEAN CORPUSCULAR HEMOGLOBIN 30.4 pg (27.0-33.0); MEAN CORPUSCULAR HGB CONC 33.9 g/dl (32.0-36.5); MEAN CORPUSCULAR VOLUME 89.7 fl (80.0-96.0); MONO # 0.9 10^3/uL (0.0-0.8); MONO % 11.6 % (2.0-8.0); NEUTROPHILS # 3.9 10^3/uL (1.5-8.5); NEUTROPHILS % 48.9 % (36.0-66.0); PLATELET COUNT, AUTOMATED 230 10^3/uL (150-450); RED BLOOD COUNT 5.23 10^6/uL (4.30-6.10); WHITE BLOOD COUNT 7.9 10^3/uL (4.0-10.0)
[2021-06-06 16:08] LABS: INR 0.98; PROTHROMBIN TIME 13.4 SECONDS (12.7-14.5)
[2021-06-06 16:09] LABS: PARTIAL THROMBOPLASTIN TIME 27.6 SECONDS (25.9-37.0)
[2021-06-06 16:31] LABS: ALBUMIN 3.8 GM/DL (3.2-5.2); ALT/SGPT 80 U/L (12-78); BILIRUBIN,TOTAL 0.5 MG/DL (0.2-1.0); BLOOD UREA NITROGEN 12 MG/DL (7-18); CALCIUM LEVEL 9.6 MG/DL (8.5-10.1); CARBON DIOXIDE LEVEL 29 MEQ/L (21-32); CHLORIDE LEVEL 105 MEQ/L (98-107); CREATININE FOR GFR 1.06 MG/DL (0.70-1.30); GLOMERULAR FILTRATION RATE > 60.0 (>60); GLUCOSE, FASTING 93 MG/DL (70-100); POTASSIUM SERUM 4.3 MEQ/L (3.5-5.1); SODIUM LEVEL 140 MEQ/L (136-145); TOTAL PROTEIN 7.2 GM/DL (6.4-8.2)
== END ==
LOC: M PLALAB 10:51
PROVIDERS: ATTEND Physician Assistant
DX: Z01.818 Encounter for other preprocedural examination (principal)

== ENCOUNTER → 2021-06-09 | Outpatient (CLI) | payer OTHER | LOC: M LABSMTC 09:40 | PROVIDERS: ATTEND Anesthesiology | DX: Z01.812 Encounter for preprocedural laboratory examination (principal); Z20.822 Contact with and (suspected) exposure to COVID-19 ==

== ENCOUNTER 2021-06-13 06:29 | Day surgery (SDC) | payer OTHER ==
[~2021-06-13] VITALS: Ht 177.8 cm; Wt 105.1 kg
[~2021-06-13 06:29] MED LIST changes: +LR 1,000 ML IV ONE
[2021-06-13] MEDS ORDERED: KETOROLAC 60MG 2ML VIAL As Ordered ONE (08:06)
[2021-06-13] MEDS ORDERED: ROCURONIUM BROMIDE 50 MG/5 ML VIAL As Ordered ONE (08:06)
[2021-06-13] MEDS ORDERED: LIDOCAINE 2% 100MG/5ML SDV (FOR ANES.) As Ordered ONE (08:06)
[2021-06-13] MEDS ORDERED: ONDANSETRON 4MG/2ML VIAL As Ordered ONE (08:06)
[2021-06-13] MEDS ORDERED: propofoL 200 MG/20 ML VIAL As Ordered ONE (08:06)
[2021-06-13] MEDS ORDERED: ACETAMINOPHEN 1000MG 100ML IV BTL (OFIRMEV) (J0131 PER 10MG) As Ordered ONE (08:06)
[2021-06-13] MEDS ORDERED: dexameTHASONE 4 MG/ML 1ML VIAL (J1100 PER 1MG) As Ordered ONE (08:06)
[2021-06-13] MEDS ORDERED: SUGAMMADEX SODIUM 500 MG/5 ML VIAL (BRIDION) As Ordered ONE (08:06)
[2021-06-13] MEDS ORDERED: MIDAZOLAM INJ 2MG/2ML VIAL (J2250 PER 1MG) As Ordered ONE (08:08)
[2021-06-13] MEDS ORDERED: fentaNYL 100 MCG/2 ML INJECTION (J3010) As Ordered ONE ×3 (08:08→10:19)
[2021-06-13] MEDS ORDERED: BUPIVACAINE/EPIN 0.25% 30 ML VIAL As Ordered ONE (08:51)
[2021-06-13] MEDS ORDERED: LABETALOL 100MG/20ML VIAL As Ordered ONE (09:18)
[2021-06-13] MEDS ORDERED: GLYCOPYRROLATE INJ 0.2 MG/ML 2 ML VIAL As Ordered ONE (09:43)
[2021-06-13] MEDS: fentaNYL 100 MCG/2 ML INJECTION (J3010) IV PRN ×4 (10:20→11:00)
[2021-06-13] MEDS ORDERED: NORCO, ANEXSIA 5/325MG TABLET (HYDROcodone/ACETAMINOPHEN) PO PRN (10:30)
--- NOTE | 2021-06-13 10:47 | RO ---
OPERATIVE NOTE DATE OF OPERATION: 06/13/2021 PREOPERATIVE DIAGNOSIS: Chronic cholecystitis. POSTOPERATIVE DIAGNOSIS: Chronic cholecystitis. PROCEDURE: Robotic cholecystectomy. SURGEON: Keanu Dias DO ASSIST: Cathy Garza ANESTHESIA: General. EBL: 5. COMPLICATIONS: None. INDICATIONS FOR PROCEDURE: The patient is a 45-year-old male who presents with right upper quadrant pain and was found to have chronic cholecystitis with HIDA scan with 0% ejection fraction. Recommendation was to proceed with robotic cholecystectomy. Risks and benefits of the procedure, not limited to but including bleeding, infection, hernias, damage to surrounding structures, and need for further surgery were discussed in detail with the patient. Informed consent was obtained and procedure was planned. PROCEDURE: The patient was brought back to operating room 7. After sufficient sedation, the abdomen was sterilely prepped and draped. Next, time out was done to confirm proper patient and proper procedure. Following that, an 8 mm incision was made in left upper quadrant, Veress needle was inserted, and the abdomen was insufflated to 15 mmHg. The Veress needle was removed and an 8 mm Optiview port was used to gain access to the abdomen. Once the abdomen was entered, three more ports were placed across the upper abdomen into right upper quadrant. The robot was then docked to the ports. From the console, the fundus of the gallbladder was then elevated up towards the right shoulder. The neck of the gallbladder was then dissected using blunt and sharp dissection. Once the cystic duct and cystic artery were carefully dissected free they were then both doubly clipped and cut. The gallbladder was then dissected free from the gallbladder fossa using electrocautery, placed inside of a 5 mm Endo Catch bag and brought out through the right upper quadrant lateral port site. The abdomen was then desufflated. The skin incisions were closed with 4-0 Vicryl subcuticular sutures. The abdomen was cleaned and dried. Steri-Strips, 4 x 4, and tape were applied. This ended the procedure.
[2021-06-13] MEDS ORDERED: oxyCODONE 5MG TAB PO PRN (10:50)
[2021-06-13] MEDS ORDERED: LR 1,000 ML IV SCH (10:50)
[2021-06-13] MEDS ORDERED: ONDANSETRON 4MG/2ML VIAL IV PRN (10:50)
[2021-06-13 12:42] VITALS: BP 117/72
--- NOTE | 2021-06-14 17:57 | ECGEPIP ---
[facility] Test Date: 2021-06-13 Pat Name: GAETANO TREVIÑO Department: Room: - Gender: Male Jig Bore Operator: ARIANA : 1975 Requested By: Antonio Moulton Order Number: [id number] Reading MD: Raheel White Measurements Intervals [place] Rate: 54 P: 44 PA: 150 QRS: 19 QRSD: 94 T: 14 QT: 476 QTc: 451 Interpretive Statements Sinus bradycardia Nonspecific ST abnormality due to artifact Last tracing on 10/18/18 at 17:27, heart rate was 68 bpm Electronically Signed on 06-14-2021 17:57:20 EDT by Raheel White
== END 2021-06-13 13:14 | disposition home or self-care (01) ==
LOC: M SDC 06:29
PROVIDERS: ATTEND Surgery
DX: K81.1 Chronic cholecystitis (principal); I10 Essential (primary) hypertension; E78.5 Hyperlipidemia, unspecified; F43.10 Post-traumatic stress disorder, unspecified; J45.909 Unspecified asthma, uncomplicated; Z79.51 Long term (current) use of inhaled steroids; G47.33 Obstructive sleep apnea (adult) (pediatric); Z79.899 Other long term (current) drug therapy; K21.9 Gastro-esophageal reflux disease without esophagitis; M79.7 Fibromyalgia; F41.9 Anxiety disorder, unspecified; F32.9 Major depressive disorder, single episode, unspecified; F90.9 Attention-deficit hyperactivity disorder, unspecified type
CPT/HCPCS: 47562; 88304; 93005; J0131; J1100; J1885; J2250; J2405; J3010; S2900

== ENCOUNTER → 2021-08-28 | Outpatient (REF) ==
[~2021-08-28] MED LIST changes: -LR 1,000 ML IV ONE; -MONT10TA10 PO; +MONT10TA97 PO
== END ==
LOC: M LABSMTC 10:27
PROVIDERS: ATTEND Pediatrics
DX: Z20.822 Contact with and (suspected) exposure to COVID-19 (principal)

== ENCOUNTER → 2021-12-23 | Outpatient (CLI) | payer BC ==
[2021-12-23 13:36] LABS: BASO # 0.1 10^3/uL (0.0-0.2); BASO % 0.7 % (0.0-1.0); EOS # 0.4 10^3/uL (0.0-0.5); HEMATOCRIT 45.1 % (42.0-52.0); HEMOGLOBIN 15.6 g/dl (13.5-17.5); LYMPH % 42.2 % (24.0-44.0); MEAN CORPUSCULAR HEMOGLOBIN 30.4 pg (27.0-33.0); MEAN CORPUSCULAR HGB CONC 34.6 g/dl (32.0-36.5); MEAN CORPUSCULAR VOLUME 87.9 fl (80.0-96.0); MONO # 0.9 10^3/uL (0.0-0.8); MONO % 12.2 % (2.0-8.0); NEUTROPHILS # 2.8 10^3/uL (1.5-8.5); NEUTROPHILS % 39.3 % (36.0-66.0); PLATELET COUNT, AUTOMATED 219 10^3/uL (150-450); RED BLOOD COUNT 5.13 10^6/uL (4.30-6.10); WHITE BLOOD COUNT 7.2 10^3/uL (4.0-10.0)
[2021-12-23 13:46] LABS: ALBUMIN 3.8 GM/DL (3.2-5.2); ALT/SGPT 181 U/L (12-78); BILIRUBIN,TOTAL 0.6 MG/DL (0.2-1.0); BLOOD UREA NITROGEN 13 MG/DL (7-18); CALCIUM LEVEL 9.3 MG/DL (8.5-10.1); CARBON DIOXIDE LEVEL 27 MEQ/L (21-32); CHLORIDE LEVEL 107 MEQ/L (98-107); CREATININE FOR GFR 1.09 MG/DL (0.70-1.30); GLOMERULAR FILTRATION RATE > 60.0 (>60); GLUCOSE, FASTING 108 MG/DL (70-100); POTASSIUM SERUM 3.9 MEQ/L (3.5-5.1); SODIUM LEVEL 139 MEQ/L (136-145); TOTAL PROTEIN 7.3 GM/DL (6.4-8.2); VALPROIC ACID (DEPAKOTE) 39.4 UG/ML (50.0-100.0)
== END ==
LOC: M PLALAB 11:29
PROVIDERS: ATTEND Psychiatry & Neurology Neurology
DX: K76.9 Liver disease, unspecified (principal)

== ENCOUNTER → 2021-12-23 | Outpatient (CLI) | payer BC ==
[2021-12-23 13:36] LABS: BASO # 0.1 10^3/uL (0.0-0.2); BASO % 0.7 % (0.0-1.0); EOS # 0.4 10^3/uL (0.0-0.5); HEMATOCRIT 44.6 % (42.0-52.0); HEMOGLOBIN 15.9 g/dl (13.5-17.5); LYMPH % 42.3 % (24.0-44.0); MEAN CORPUSCULAR HEMOGLOBIN 31.7 pg (27.0-33.0); MEAN CORPUSCULAR HGB CONC 35.7 g/dl (32.0-36.5); MEAN CORPUSCULAR VOLUME 88.8 fl (80.0-96.0); MONO # 0.9 10^3/uL (0.0-0.8); MONO % 11.8 % (2.0-8.0); NEUTROPHILS # 2.9 10^3/uL (1.5-8.5); NEUTROPHILS % 39.6 % (36.0-66.0); PLATELET COUNT, AUTOMATED 209 10^3/uL (150-450); RED BLOOD COUNT 5.02 10^6/uL (4.30-6.10); WHITE BLOOD COUNT 7.2 10^3/uL (4.0-10.0)
[2021-12-23 13:45] LABS: ALBUMIN 3.9 GM/DL (3.2-5.2); ALT/SGPT 179 U/L (12-78); BILIRUBIN,TOTAL 0.6 MG/DL (0.2-1.0); BLOOD UREA NITROGEN 13 MG/DL (7-18); CALCIUM LEVEL 9.8 MG/DL (8.5-10.1); CARBON DIOXIDE LEVEL 28 MEQ/L (21-32); CHLORIDE LEVEL 109 MEQ/L (98-107); CHOLESTEROL LEVEL 307 MG/DL (<200); CHOLESTEROL RISK RATIO 10.233 (<5); CREATININE FOR GFR 1.08 MG/DL (0.70-1.30); GLOMERULAR FILTRATION RATE > 60.0 (>60); GLUCOSE, FASTING 112 MG/DL (70-100); HDL CHOLESTEROL 30 MG/DL (>40); NON-HDL-C 277 MG/DL; POTASSIUM SERUM 4.1 MEQ/L (3.5-5.1); SODIUM LEVEL 143 MEQ/L (136-145); TOTAL PROTEIN 7.5 GM/DL (6.4-8.2); TRIGLYCERIDES LEVEL 651 MG/DL (<150)
== END ==
LOC: M PLALAB 11:32
PROVIDERS: ATTEND Nurse Practitioner Adult Health
DX: E78.1 Pure hyperglyceridemia (principal); I10 Essential (primary) hypertension; F33.2 Major depressive disorder, recurrent severe without psychotic features; E55.9 Vitamin D deficiency, unspecified

== ENCOUNTER → 2021-12-30 | Outpatient (CLI) | payer BC ==
[~2021-12-30] MED LIST changes: +GASTROGRAFIN SOLUTION 30ML (Q9963) As Ordered ONE; +ISOVUE-370 76% 100ML VIAL As Ordered ONE
== END ==
LOC: M RAD 10:48
PROVIDERS: ATTEND Nurse Practitioner Adult Health
DX: R11.2 Nausea with vomiting, unspecified (principal); R19.7 Diarrhea, unspecified; R16.2 Hepatomegaly with splenomegaly, not elsewhere classified
CPT/HCPCS: 74178; Q9963; Q9967

== ENCOUNTER 2022-02-18 14:58 | Emergency (ER) | payer BC ==
[~2022-02-18] VITALS: Ht 180.3 cm; Wt 107.6 kg
[2022-02-18 15:55] LABS: BASO # 0.1 10^3/uL (0.0-0.2); BASO % 0.6 % (0.0-1.0); EOS # 0.4 10^3/uL (0.0-0.5); EOS % 4.3 % (0.0-3.0); HEMATOCRIT 46.2 % (42.0-52.0); HEMOGLOBIN 16.5 g/dl (13.5-17.5); LYMPH # 2.5 10^3/uL (1.5-5.0); LYMPH % 31.1 % (24.0-44.0); MEAN CORPUSCULAR HEMOGLOBIN 31.4 pg (27.0-33.0); MEAN CORPUSCULAR HGB CONC 35.7 g/dl (32.0-36.5); MONO # 1.1 10^3/uL (0.0-0.8); MONO % 13.3 % (2.0-8.0); NEUTROPHILS # 4.1 10^3/uL (1.5-8.5); NEUTROPHILS % 50.3 % (36.0-66.0); PLATELET COUNT, AUTOMATED 227 10^3/uL (150-450); RED BLOOD COUNT 5.25 10^6/uL (4.30-6.10); WHITE BLOOD COUNT 8.1 10^3/uL (4.0-10.0)
[2022-02-18 16:26] LABS: ALBUMIN 4.1 GM/DL (3.2-5.2); ALT/SGPT 177 U/L (12-78); BILIRUBIN,DIRECT 0.3 MG/DL (0.0-0.2); BLOOD UREA NITROGEN 12 MG/DL (7-18); CARBON DIOXIDE LEVEL 24 MEQ/L (21-32); CHLORIDE LEVEL 108 MEQ/L (98-107); CREATININE FOR GFR 1.18 MG/DL (0.70-1.30); GLOMERULAR FILTRATION RATE > 60.0 (>60); GLUCOSE, FASTING 101 MG/DL (70-100); LIPASE 177 U/L (73-393); POTASSIUM SERUM 4.1 MEQ/L (3.5-5.1); SODIUM LEVEL 140 MEQ/L (136-145); TOTAL PROTEIN 7.7 GM/DL (6.4-8.2)
[2022-02-18 20:01] VITALS: BP 117/70
== END 2022-02-18 20:05 | disposition home or self-care (01) ==
LOC: M ED 14:58
DX: R10.32 Left lower quadrant pain (principal); R16.1 Splenomegaly, not elsewhere classified; Z87.891 Personal history of nicotine dependence; Z91.013 Allergy to seafood; Z79.51 Long term (current) use of inhaled steroids; Z79.899 Other long term (current) drug therapy

== ENCOUNTER → 2022-02-18 | Outpatient (CLI) | payer BC ==
[~2022-02-18] MED LIST changes: -GASTROGRAFIN SOLUTION 30ML (Q9963) As Ordered ONE; -ISOVUE-370 76% 100ML VIAL As Ordered ONE
[2022-02-18 15:56] LABS: BLOOD UREA NITROGEN 12 MG/DL (7-18); CREATININE FOR GFR 1.15 MG/DL (0.70-1.30); GLOMERULAR FILTRATION RATE > 60.0 (>60)
== END ==
LOC: M PLALAB 13:51
PROVIDERS: ATTEND Psychiatry & Neurology Neurology
DX: I10 Essential (primary) hypertension (principal)

== ENCOUNTER → 2022-04-16 | Outpatient (CLI) | payer BC ==
[2022-04-16 18:22] LABS: RHEUMATOID FACTOR QUANT < 10.0 IU/ML (<15.0)
== END ==
LOC: M PLAIMG 15:55
PROVIDERS: ATTEND Family Medicine
DX: M25.461 Effusion, right knee (principal)

== ENCOUNTER → 2022-05-13 | Outpatient (CLI) | payer BC ==
[~2022-05-13] MED LIST changes: +ACETAMINOPHEN TAB 650MG DOSE (2X325MG) PO PRN; +D3 +TAB PO; +IBUPROFEN 600MG TAB PO PRN; +LIDOCAINE 1% MDV 20ML VIAL As Ordered ONE; +[UNRECOGNIZED DRUG - CODE] NS
[2022-05-13 10:45] VITALS: BP 114/76
== END ==
LOC: M IRPRO 07:55
PROVIDERS: ATTEND Internal Medicine Gastroenterology
DX: R94.5 Abnormal results of liver function studies (principal); K76.0 Fatty (change of) liver, not elsewhere classified; R16.2 Hepatomegaly with splenomegaly, not elsewhere classified; Z86.010 Personal history of colon polyps

== ENCOUNTER → 2022-06-04 | Outpatient (CLI) | payer BC ==
[~2022-06-04] MED LIST changes: -ACETAMINOPHEN TAB 650MG DOSE (2X325MG) PO PRN; -IBUPROFEN 600MG TAB PO PRN; -LIDOCAINE 1% MDV 20ML VIAL As Ordered ONE
== END ==
LOC: M PLALAB 14:50
PROVIDERS: ATTEND Nurse Practitioner Adult Health
DX: N40.0 Benign prostatic hyperplasia without lower urinary tract symptoms (principal)

== ENCOUNTER → 2022-06-12 | Outpatient (CLI) | payer BC ==
[2022-06-12 16:52] LABS: ALBUMIN 3.8 GM/DL (3.2-5.2); BILIRUBIN,DIRECT 0.2 MG/DL (0.0-0.2); BILIRUBIN,TOTAL 0.4 MG/DL (0.2-1.0); C REACTIVE PROTEIN QUANTITATIV 0.36 MG/DL (0.00-0.30); TOTAL PROTEIN 7.3 GM/DL (6.4-8.2)
[2022-06-16 16:08] LABS: ANCA-ATYPICAL <1:20 titer (Neg:<1:20); ANGIOTENSIN 1 CONVERTING ENZYM 59 U/L (14-82); ANTI-SACCHAROMYCES CEREV. IgA <20.0 Units (0.0-24.9); ANTI-SACCHAROMYCES CEREV. IgG <20.0 Units (0.0-24.9); CYTOPLASMIC NEUTROP AB ANCA-C <1:20 titer (Neg:<1:20); PERINUCLEAR AB ANCA-P <1:20 titer (Neg:<1:20)
== END ==
LOC: M PLALAB 14:07
PROVIDERS: ATTEND Internal Medicine Gastroenterology
DX: R94.5 Abnormal results of liver function studies (principal)

== ENCOUNTER → 2022-07-24 | Outpatient (CLI) | payer BC ==
[2022-07-24 18:36] LABS: MEAN CORPUSCULAR HEMOGLOBIN 30.5 pg (27.0-33.0); MEAN CORPUSCULAR HGB CONC 34.7 g/dl (32.0-36.5); PLATELET COUNT, AUTOMATED 262 10^3/uL (150-450); RED BLOOD COUNT 5.57 10^6/uL (4.30-6.10); WHITE BLOOD COUNT 8.4 10^3/uL (4.0-10.0)
[2022-07-24 18:55] LABS: LIPASE 57 U/L (12-53)
[2022-07-24 18:58] LABS: ALBUMIN 4.2 G/DL (3.2-5.2); ALKALINE PHOSPHATASE 106 U/L (46-116); ALT/SGPT 66 U/L (7.0-40); AST/SGOT 38 U/L (<34); BILIRUBIN,TOTAL 0.4 MG/DL (0.3-1.2); BLOOD UREA NITROGEN 9 MG/DL (9-23); CALCIUM LEVEL 9.6 MG/DL (8.5-10.1); CARBON DIOXIDE LEVEL 23 MMOL/L (20-31); CHLORIDE LEVEL 104 MMOL/L (98-107); CREATININE FOR GFR 1.01 MG/DL (0.70-1.30); GLOMERULAR FILTRATION RATE > 60.0 (>60); GLUCOSE, FASTING 95 MG/DL (60-100); POTASSIUM SERUM 4.8 MMOL/L (3.5-5.1); SODIUM LEVEL 141 MMOL/L (136-145); TOTAL PROTEIN 7.3 G/DL (5.7-8.2)
[2022-07-24 21:24] LABS: ERYTHROCYTE SEDIMENTATION RATE 5 mm/hr (0-15)
== END ==
LOC: M LAB 16:14
PROVIDERS: ATTEND Internal Medicine Gastroenterology
DX: Z01.812 Encounter for preprocedural laboratory examination (principal); R10.84 Generalized abdominal pain; R19.7 Diarrhea, unspecified; R94.5 Abnormal results of liver function studies; R11.2 Nausea with vomiting, unspecified; R16.2 Hepatomegaly with splenomegaly, not elsewhere classified

== ENCOUNTER → 2022-08-04 | Outpatient (CLI) | payer BC | LOC: M RAD 14:28 | PROVIDERS: ATTEND Nurse Practitioner Adult Health | DX: M70.41 Prepatellar bursitis, right knee (principal) ==

== ENCOUNTER → 2022-08-14 | Outpatient (CLI) | payer BC ==
[~2022-08-14] MED LIST changes: +GASTROGRAFIN SOLUTION 30ML As Ordered ONE; +ISOVUE-370 76% 100ML VIAL As Ordered ONE
== END ==
LOC: M RAD 09:01
PROVIDERS: ATTEND Internal Medicine Gastroenterology
DX: R10.84 Generalized abdominal pain (principal); R19.7 Diarrhea, unspecified; R94.5 Abnormal results of liver function studies; Z01.812 Encounter for preprocedural laboratory examination; R11.2 Nausea with vomiting, unspecified; R16.2 Hepatomegaly with splenomegaly, not elsewhere classified

== ENCOUNTER → 2022-08-20 | Outpatient (REF) | payer BC ==
[~2022-08-20] MED LIST changes: -GASTROGRAFIN SOLUTION 30ML As Ordered ONE; -ISOVUE-370 76% 100ML VIAL As Ordered ONE
== END ==
LOC: M LAB REF 17:24
PROVIDERS: ATTEND Family Medicine
DX: J06.9 Acute upper respiratory infection, unspecified (principal); J01.90 Acute sinusitis, unspecified; Z20.822 Contact with and (suspected) exposure to COVID-19

== ENCOUNTER → 2022-09-11 | Outpatient (CLI) | payer BC ==
[2022-09-11 16:28] LABS: BILIRUBIN,DIRECT 0.2 MG/DL (<0.4); BILIRUBIN,TOTAL 0.5 MG/DL (0.3-1.2); TOTAL PROTEIN 7.5 G/DL (5.7-8.2)
== END ==
LOC: M PLALAB 14:29
PROVIDERS: ATTEND Internal Medicine Gastroenterology
DX: R16.2 Hepatomegaly with splenomegaly, not elsewhere classified (principal); R11.2 Nausea with vomiting, unspecified; R94.5 Abnormal results of liver function studies; R19.7 Diarrhea, unspecified

== ENCOUNTER → 2022-09-23 | Outpatient (CLI) | payer BC ==
[2022-09-23 18:28] LABS: VITAMIN B12 LEVEL 569 PG/ML (211-911)
[2022-09-23 18:29] LABS: THYROID STIMULATING HORMONE 1.821 uIU/ML (0.55-4.78); TOTAL 25(OH) VITAMIN D 45.6 NG/ML (20.0-100.0)
[2022-09-23 18:30] LABS: FREE T4 1.06 NG/DL (0.89-1.76)
[2022-09-23 18:49] LABS: MONO REFLEX EBV VCA IgM NEGATIVE (NEGATIVE)
[2022-09-23 19:00] LABS: HIV 1&2 SCREEN CENTAUR NEGATIVE (NEGATIVE)
[2022-09-23 19:06] LABS: GC DNA AMPLIFICATION NEGATIVE (NEGATIVE)
[2022-09-25 16:08] LABS: EBV VIRAL CAPSID AG IgM <36.0 U/mL (0.0-35.9); HSV TYPE II IgG SPECIFIC <0.91 index (0.00-0.90)
== END ==
LOC: M PLALAB 16:34
PROVIDERS: ATTEND Family Medicine
DX: Z72.52 High risk homosexual behavior (principal); R53.83 Other fatigue

== ENCOUNTER → 2022-10-09 | Outpatient (CLI) | payer BC ==
[2022-10-09 17:37] LABS: ALBUMIN 4.3 G/DL (3.2-5.2); BILIRUBIN,DIRECT 0.2 MG/DL (<0.4); BILIRUBIN,TOTAL 0.4 MG/DL (0.3-1.2); TOTAL PROTEIN 7.4 G/DL (5.7-8.2)
== END ==
LOC: M PLALAB 14:16
PROVIDERS: ATTEND Internal Medicine Gastroenterology
DX: R94.5 Abnormal results of liver function studies (principal)

== ENCOUNTER → 2022-11-06 | Outpatient (CLI) | payer BC ==
[2022-11-06 16:44] LABS: ALBUMIN 4.3 G/DL (3.2-5.2); BILIRUBIN,DIRECT 0.2 MG/DL (<0.4); BILIRUBIN,TOTAL 0.9 MG/DL (0.3-1.2); TOTAL PROTEIN 7.4 G/DL (5.7-8.2)
== END ==
LOC: M PLALAB 14:22
PROVIDERS: ATTEND Internal Medicine Gastroenterology
DX: R94.5 Abnormal results of liver function studies (principal)

== ENCOUNTER → 2022-11-10 | Outpatient (CLI) | payer BC ==
[2022-11-10 17:35] LABS: BASO % 0.3 % (0.0-1.0); EOS # 0.1 10^3/uL (0.0-0.5); EOS % 0.9 % (0.0-3.0); HEMATOCRIT 48.7 % (42.0-52.0); HEMOGLOBIN 16.8 g/dl (13.5-17.5); LYMPH # 2.4 10^3/uL (1.5-5.0); MEAN CORPUSCULAR HEMOGLOBIN 31.2 pg (27.0-33.0); MEAN CORPUSCULAR HGB CONC 34.5 g/dl (32.0-36.5); MEAN CORPUSCULAR VOLUME 90.4 fl (80.0-96.0); MONO % 11.2 % (2.0-8.0); NEUTROPHILS # 11.3 10^3/uL (1.5-8.5); NEUTROPHILS % 72.2 % (36.0-66.0); PLATELET COUNT, AUTOMATED 231 10^3/uL (150-450); RED BLOOD COUNT 5.39 10^6/uL (4.30-6.10); WHITE BLOOD COUNT 15.7 10^3/uL (4.0-10.0)
[2022-11-10 17:36] LABS: MONO # 1.8 10^3/uL (0.0-0.8)
[2022-11-12 23:07] LABS: PSA TOTAL 11.2 ng/mL (0.0-4.0)
== END ==
LOC: M PLALAB 14:48
PROVIDERS: ATTEND Nurse Practitioner Adult Health
DX: R39.12 Poor urinary stream (principal); R35.0 Frequency of micturition

== ENCOUNTER → 2022-11-24 | Outpatient (REF) | payer BC ==
[2022-11-24 18:36] LABS: GC DNA AMPLIFICATION NEGATIVE (NEGATIVE)
== END ==
LOC: M LAB REF 16:43
PROVIDERS: ATTEND Nurse Practitioner Adult Health
DX: Z11.3 Encounter for screening for infections with a predominantly sexual mode of transmission (principal)

== ENCOUNTER → 2022-11-26 | Outpatient (CLI) | payer BC ==
[2022-11-26 18:25] LABS: BASO # 0.1 10^3/uL (0.0-0.2); BASO % 0.7 % (0.0-1.0); EOS # 0.3 10^3/uL (0.0-0.5); EOS % 3.3 % (0.0-3.0); HEMATOCRIT 48.5 % (42.0-52.0); HEMOGLOBIN 16.6 g/dl (13.5-17.5); LYMPH # 2.8 10^3/uL (1.5-5.0); LYMPH % 31.7 % (24.0-44.0); MEAN CORPUSCULAR HGB CONC 34.2 g/dl (32.0-36.5); MEAN CORPUSCULAR VOLUME 90.7 fl (80.0-96.0); MONO # 0.8 10^3/uL (0.0-0.8); MONO % 8.9 % (2.0-8.0); NEUTROPHILS # 4.7 10^3/uL (1.5-8.5); NEUTROPHILS % 54.4 % (36.0-66.0); PLATELET COUNT, AUTOMATED 272 10^3/uL (150-450); RED BLOOD COUNT 5.35 10^6/uL (4.30-6.10); WHITE BLOOD COUNT 8.7 10^3/uL (4.0-10.0)
[2022-11-26 18:55] LABS: ALBUMIN 4.2 G/DL (3.2-5.2); BILIRUBIN,DIRECT 0.2 MG/DL (<0.4); BILIRUBIN,TOTAL 0.6 MG/DL (0.3-1.2); TOTAL PROTEIN 7.5 G/DL (5.7-8.2)
== END ==
LOC: M PLALAB 14:49
PROVIDERS: ATTEND Nurse Practitioner Adult Health
DX: N41.0 Acute prostatitis (principal)

== ENCOUNTER → 2022-11-26 | Outpatient (CLI) | payer BC | LOC: M PLALAB 14:47 | PROVIDERS: ATTEND Internal Medicine Gastroenterology | DX: R94.5 Abnormal results of liver function studies (principal); R16.2 Hepatomegaly with splenomegaly, not elsewhere classified ==

== ENCOUNTER → 2022-12-15 | Outpatient (CLI) | payer BC ==
[2022-12-15 17:07] LABS: ALBUMIN 4.1 G/DL (3.2-5.2); ALKALINE PHOSPHATASE 114 U/L (46-116); ALT/SGPT 93 U/L (7.0-40); AST/SGOT 54 U/L (<34); BILIRUBIN,TOTAL 0.5 MG/DL (0.3-1.2); BLOOD UREA NITROGEN 11 MG/DL (9-23); CARBON DIOXIDE LEVEL 26 MMOL/L (20-31); CHLORIDE LEVEL 105 MMOL/L (98-107); CREATININE FOR GFR 1.25 MG/DL (0.70-1.30); GLOMERULAR FILTRATION RATE > 60.0 (>60); GLUCOSE, FASTING 103 MG/DL (60-100); POTASSIUM SERUM 3.7 MMOL/L (3.5-5.1); SODIUM LEVEL 140 MMOL/L (136-145); TOTAL PROTEIN 6.8 G/DL (5.7-8.2)
[2022-12-15 17:35] LABS: GC DNA AMPLIFICATION NEGATIVE (NEGATIVE); HIV 1&2 SCREEN CENTAUR NEGATIVE (NEGATIVE)
[2022-12-17 11:10] LABS: HSV TYPE II IgG SPECIFIC <0.91 index (0.00-0.90); PSA FREE 0.41 ng/mL; PSA TOTAL 6.8 ng/mL (0.0-4.0)
== END ==
LOC: M PLALAB 14:17
PROVIDERS: ATTEND Family Medicine
DX: Z72.52 High risk homosexual behavior (principal); K75.81 Nonalcoholic steatohepatitis (NASH); N41.0 Acute prostatitis

== ENCOUNTER → 2023-02-03 | Outpatient (CLI) | payer BC ==
[~2023-02-03] MED LIST changes: +LEVO750T14 PO; +MIRA3350 PO; +SERO150T2 PO
[2023-02-03 18:28] LABS: ALBUMIN 4.1 G/DL (3.2-5.2); BILIRUBIN,DIRECT 0.1 MG/DL (<0.4); BILIRUBIN,TOTAL 0.4 MG/DL (0.3-1.2); TOTAL PROTEIN 6.7 G/DL (5.7-8.2)
[2023-02-05 23:07] LABS: PSA TOTAL 3.4 ng/mL (0.0-4.0)
== END ==
LOC: M PLALAB 15:22
PROVIDERS: ATTEND Nurse Practitioner Adult Health
DX: N41.1 Chronic prostatitis (principal); K75.81 Nonalcoholic steatohepatitis (NASH)

== ENCOUNTER 2023-02-07 15:41 | Emergency (ER) | payer BC ==
[~2023-02-07] VITALS: Ht 177.8 cm; Wt 102.2 kg
[~2023-02-07 15:41] MED LIST changes: -LEVO750T14 PO; -MIRA3350 PO; -SERO150T2 PO
[2023-02-07] MEDS ORDERED: LEVO750T14 PO (15:56)
[2023-02-07] MEDS ORDERED: SERO150T2 PO (15:56)
[2023-02-07] MEDS ORDERED: KETOROLAC 30 MG/ML 1ML VIAL IV ONE (17:40)
[2023-02-07 18:05] LABS: BASO % 0.4 % (0.0-1.0); EOS # 0.2 10^3/uL (0.0-0.5); EOS % 3.1 % (0.0-3.0); HEMATOCRIT 45.6 % (42.0-52.0); HEMOGLOBIN 16.2 g/dl (13.5-17.5); LYMPH # 2.4 10^3/uL (1.5-5.0); LYMPH % 29.9 % (24.0-44.0); MEAN CORPUSCULAR HEMOGLOBIN 32.2 pg (27.0-33.0); MEAN CORPUSCULAR HGB CONC 35.5 g/dl (32.0-36.5); MEAN CORPUSCULAR VOLUME 90.7 fl (80.0-96.0); MONO # 0.7 10^3/uL (0.0-0.8); MONO % 8.5 % (2.0-8.0); NEUTROPHILS # 4.5 10^3/uL (1.5-8.5); NEUTROPHILS % 57.7 % (36.0-66.0); PLATELET COUNT, AUTOMATED 250 10^3/uL (150-450); RED BLOOD COUNT 5.03 10^6/uL (4.30-6.10); WHITE BLOOD COUNT 7.9 10^3/uL (4.0-10.0)
[2023-02-07] MEDS ORDERED: ISOVUE-370 76% 100ML VIAL As Ordered ONE (18:11)
[2023-02-07] MEDS ORDERED: NS 1,000 ML IV ONE (18:20)
[2023-02-07 18:48] LABS: ALBUMIN 4.3 G/DL (3.2-5.2); BILIRUBIN,DIRECT 0.3 MG/DL (<0.4); BILIRUBIN,TOTAL 1.1 MG/DL (0.3-1.2); TOTAL PROTEIN 7.3 G/DL (5.7-8.2)
[2023-02-07] MEDS ORDERED: MIRA3350 PO (19:50)
[2023-02-07 19:54] VITALS: BP 130/77; TEMP 97.4; O2SAT 99
== END 2023-02-07 20:09 | disposition home or self-care (01) ==
LOC: M ED 15:41
DX: R10.9 Unspecified abdominal pain (principal); K59.00 Constipation, unspecified; R74.01 Elevation of levels of liver transaminase levels; R79.89 Other specified abnormal findings of blood chemistry; K21.9 Gastro-esophageal reflux disease without esophagitis; I10 Essential (primary) hypertension; E78.5 Hyperlipidemia, unspecified; G43.909 Migraine, unspecified, not intractable, without status migrainosus; J45.909 Unspecified asthma, uncomplicated; G47.33 Obstructive sleep apnea (adult) (pediatric); F12.10 Cannabis abuse, uncomplicated; Z91.013 Allergy to seafood; Z79.52 Long term (current) use of systemic steroids; Z79.83 Long term (current) use of bisphosphonates; Z79.899 Other long term (current) drug therapy
CPT/HCPCS: 74177; 80047; 80076; 81001; 83690; 85025; 96361; 96374; 99284; J1885; Q9967

== ENCOUNTER → 2023-02-24 | Outpatient (CLI) | payer BC ==
[~2023-02-24] MED LIST changes: +LEVO750T14 PO; +MIRA3350 PO; +SERO150T2 PO
== END ==
LOC: M RAD 08:52
PROVIDERS: ATTEND Internal Medicine Gastroenterology
DX: K76.0 Fatty (change of) liver, not elsewhere classified (principal); K91.5 Postcholecystectomy syndrome

== ENCOUNTER → 2023-03-18 | Outpatient (CLI) | payer BC ==
[2023-03-18 20:15] LABS: ALKALINE PHOSPHATASE 105 U/L (46-116); ALT/SGPT 21 U/L (7.0-40); AST/SGOT 12 U/L (<34); BILIRUBIN,DIRECT < 0.1 MG/DL (<0.4); BILIRUBIN,TOTAL 0.2 MG/DL (0.3-1.2); TOTAL PROTEIN 6.3 G/DL (5.7-8.2)
== END ==
LOC: M PLALAB 15:15
PROVIDERS: ATTEND Internal Medicine Gastroenterology
DX: R94.5 Abnormal results of liver function studies (principal); K76.0 Fatty (change of) liver, not elsewhere classified; K74.00 Hepatic fibrosis, unspecified; R16.2 Hepatomegaly with splenomegaly, not elsewhere classified; R11.2 Nausea with vomiting, unspecified; Z86.010 Personal history of colon polyps; K59.00 Constipation, unspecified; K75.3 Granulomatous hepatitis, not elsewhere classified

== ENCOUNTER → 2023-03-18 | Outpatient (CLI) | payer BC ==
[2023-03-18 19:56] LABS: BASO % 0.3 % (0.0-1.0); EOS # 0.2 10^3/uL (0.0-0.5); EOS % 3.7 % (0.0-3.0); HEMATOCRIT 43.6 % (42.0-52.0); HEMOGLOBIN 15.6 g/dl (13.5-17.5); LYMPH # 2.4 10^3/uL (1.5-5.0); LYMPH % 37.2 % (24.0-44.0); MEAN CORPUSCULAR HEMOGLOBIN 32.5 pg (27.0-33.0); MEAN CORPUSCULAR HGB CONC 35.8 g/dl (32.0-36.5); MEAN CORPUSCULAR VOLUME 90.8 fl (80.0-96.0); MONO # 0.6 10^3/uL (0.0-0.8); MONO % 9.9 % (2.0-8.0); NEUTROPHILS # 3.2 10^3/uL (1.5-8.5); NEUTROPHILS % 48.7 % (36.0-66.0); PLATELET COUNT, AUTOMATED 211 10^3/uL (150-450); WHITE BLOOD COUNT 6.5 10^3/uL (4.0-10.0)
[2023-03-18 20:28] LABS: ALKALINE PHOSPHATASE 106 U/L (46-116); ALT/SGPT 21 U/L (7.0-40); AST/SGOT 11 U/L (<34); BILIRUBIN,DIRECT < 0.1 MG/DL (<0.4); BILIRUBIN,TOTAL 0.2 MG/DL (0.3-1.2); BLOOD UREA NITROGEN 15 MG/DL (9-23); CALCIUM LEVEL 9.2 MG/DL (8.5-10.1); CARBON DIOXIDE LEVEL 23 MMOL/L (20-31); CHLORIDE LEVEL 109 MMOL/L (98-107); CHOLESTEROL LEVEL 175 MG/DL (<200); CHOLESTEROL RISK RATIO 5.79 (<5); GLOMERULAR FILTRATION RATE > 60.0 (>60); GLUCOSE, FASTING 84 MG/DL (60-100); HDL CHOLESTEROL 30.2 MG/DL (>40); NON-HDL-C 144.8 MG/DL; POTASSIUM SERUM 3.9 MMOL/L (3.5-5.1); SODIUM LEVEL 143 MMOL/L (136-145); TOTAL PROTEIN 6.3 G/DL (5.7-8.2); TRIGLYCERIDES LEVEL 830 MG/DL (<150)
[2023-03-18 20:43] LABS: HIV 1&2 SCREEN NEGATIVE (NEGATIVE)
[2023-03-20 11:08] LABS: HSV TYPE II IgG SPECIFIC <0.91 index (0.00-0.90); PSA TOTAL 2.3 ng/mL (0.0-4.0)
== END ==
LOC: M PLALAB 15:12
PROVIDERS: ATTEND Family Medicine
DX: N41.0 Acute prostatitis (principal); E78.1 Pure hyperglyceridemia; Z79.899 Other long term (current) drug therapy

== ENCOUNTER → 2023-03-25 | Outpatient (CLI) | payer BC ==
[2023-03-25 17:56] LABS: URIC ACID 7.1 MG/DL (3.7-9.2)
[2023-03-25 17:57] LABS: C REACTIVE PROTEIN QUANTITATIV < 0.40 MG/DL (<1.0); LIPASE 40 U/L (12-53)
[2023-03-25 17:58] LABS: AMYLASE 76 U/L (30-118)
[2023-03-25 17:59] LABS: RHEUMATOID FACTOR QUANT < 3.5 IU/ML (<14)
== END ==
LOC: M PLALAB 15:16
PROVIDERS: ATTEND Nurse Practitioner Adult Health
DX: M25.50 Pain in unspecified joint (principal); K75.81 Nonalcoholic steatohepatitis (NASH)

== ENCOUNTER → 2023-04-05 | Outpatient (CLI) | payer BC | LOC: M RAD 11:58 | PROVIDERS: ATTEND Physician Assistant | DX: N50.89 Other specified disorders of the male genital organs (principal) ==

== ENCOUNTER → 2023-04-09 | Outpatient (CLI) | payer BC | LOC: M RAD 11:28 | PROVIDERS: ATTEND Internal Medicine Gastroenterology | DX: T18.2XXA Foreign body in stomach, initial encounter (principal); K31.89 Other diseases of stomach and duodenum; K31.7 Polyp of stomach and duodenum; I85.00 Esophageal varices without bleeding; K44.9 Diaphragmatic hernia without obstruction or gangrene | CPT/HCPCS: 78264; A9541 ==

== ENCOUNTER → 2023-07-01 | Outpatient (REF) | payer BC ==
[2023-07-01 18:21] LABS: BASO # 0.1 10^3/uL (0.0-0.2); BASO % 0.6 % (0.0-1.0); EOS # 0.4 10^3/uL (0.0-0.5); EOS % 4.4 % (0.0-3.0); HEMATOCRIT 43.8 % (42.0-52.0); HEMOGLOBIN 15.2 g/dl (13.5-17.5); LYMPH % 33.7 % (24.0-44.0); MEAN CORPUSCULAR HEMOGLOBIN 31.1 pg (27.0-33.0); MEAN CORPUSCULAR HGB CONC 34.7 g/dl (32.0-36.5); MEAN CORPUSCULAR VOLUME 89.8 fl (80.0-96.0); MONO # 0.9 10^3/uL (0.0-0.8); MONO % 9.9 % (2.0-8.0); NEUTROPHILS # 4.6 10^3/uL (1.5-8.5); PLATELET COUNT, AUTOMATED 235 10^3/uL (150-450); RED BLOOD COUNT 4.88 10^6/uL (4.30-6.10); WHITE BLOOD COUNT 8.9 10^3/uL (4.0-10.0)
[2023-07-01 18:46] LABS: ALBUMIN 3.7 G/DL (3.2-5.2); ALKALINE PHOSPHATASE 108 U/L (46-116); ALT/SGPT 46 U/L (7.0-40); AST/SGOT 26 U/L (<34); BILIRUBIN,TOTAL 0.4 MG/DL (0.3-1.2); BLOOD UREA NITROGEN 12 MG/DL (9-23); CALCIUM LEVEL 9.2 MG/DL (8.5-10.1); CARBON DIOXIDE LEVEL 28 MMOL/L (20-31); CHLORIDE LEVEL 105 MMOL/L (98-107); CHOLESTEROL LEVEL 189 MG/DL (<200); CHOLESTEROL RISK RATIO 6.13 (<5); CREATININE FOR GFR 1.07 MG/DL (0.70-1.30); GLOMERULAR FILTRATION RATE > 60.0 (>60); GLUCOSE, FASTING 84 MG/DL (60-100); HDL CHOLESTEROL 30.8 MG/DL (>40); MAGNESIUM LEVEL 2.1 MG/DL (1.8-2.4); NON-HDL-C 158.2 MG/DL; SODIUM LEVEL 138 MMOL/L (136-145); TOTAL 25(OH) VITAMIN D 61.7 NG/ML (20.0-100.0); TRIGLYCERIDES LEVEL 522 MG/DL (<150)
[2023-07-01 19:15] LABS: HIV 1&2 SCREEN NEGATIVE (NEGATIVE)
== END ==
LOC: M LABDRAWP 17:28
PROVIDERS: ATTEND Nurse Practitioner Adult Health
DX: E55.9 Vitamin D deficiency, unspecified (principal); Z72.52 High risk homosexual behavior; E78.1 Pure hyperglyceridemia; I10 Essential (primary) hypertension; K31.84 Gastroparesis

== ENCOUNTER → 2023-09-27 | Outpatient (REF) | payer BC ==
[2023-09-27 18:50] LABS: BASO % 0.6 % (0.0-1.0); EOS # 0.3 10^3/uL (0.0-0.5); EOS % 4.7 % (0.0-3.0); HEMATOCRIT 44.8 % (42.0-52.0); HEMOGLOBIN 15.5 g/dl (13.5-17.5); LYMPH # 2.4 10^3/uL (1.5-5.0); LYMPH % 36.5 % (24.0-44.0); MEAN CORPUSCULAR HEMOGLOBIN 31.7 pg (27.0-33.0); MEAN CORPUSCULAR HGB CONC 34.6 g/dl (32.0-36.5); MEAN CORPUSCULAR VOLUME 91.6 fl (80.0-96.0); MONO # 0.7 10^3/uL (0.0-0.8); MONO % 10.6 % (2.0-8.0); NEUTROPHILS # 3.1 10^3/uL (1.5-8.5); NEUTROPHILS % 47.4 % (36.0-66.0); PLATELET COUNT, AUTOMATED 221 10^3/uL (150-450); RED BLOOD COUNT 4.89 10^6/uL (4.30-6.10); WHITE BLOOD COUNT 6.5 10^3/uL (4.0-10.0)
[2023-09-27 19:13] LABS: ALBUMIN 3.7 G/DL (3.2-5.2); ALKALINE PHOSPHATASE 95 U/L (46-116); ALT/SGPT 32 U/L (7.0-40); AST/SGOT 17 U/L (<34); BILIRUBIN,DIRECT 0.1 MG/DL (<0.4); BILIRUBIN,TOTAL 0.3 MG/DL (0.3-1.2); CHOLESTEROL LEVEL 170 MG/DL (<200); CHOLESTEROL RISK RATIO 5.92 (<5); HDL CHOLESTEROL 28.7 MG/DL (>40); NON-HDL-C 141.3 MG/DL; TOTAL PROTEIN 6.7 G/DL (5.7-8.2); TRIGLYCERIDES LEVEL 474 MG/DL (<150)
[2023-09-27 19:39] LABS: HIV 1&2 SCREEN NEGATIVE (NEGATIVE)
[2023-09-27 19:47] LABS: HEPATITIS C VIRUS ABY INDEX < 0.02 INDEX (<0.8)
[2023-09-27 19:48] LABS: HEPATITIS B CORE ANTIBODY IGM NEGATIVE (NEGATIVE)
[2023-09-27 20:31] LABS: CHLAMYDIA DNA AMPLIFICATION NEGATIVE (NEGATIVE); GC DNA AMPLIFICATION NEGATIVE (NEGATIVE)
== END ==
LOC: M LABDRAWP 17:13
PROVIDERS: ATTEND Nurse Practitioner Adult Health
DX: Z11.3 Encounter for screening for infections with a predominantly sexual mode of transmission (principal); E78.1 Pure hyperglyceridemia

== ENCOUNTER → 2023-10-12 | Outpatient (REF) | payer BC | LOC: M LAB REF 16:23 | PROVIDERS: ATTEND Physician Assistant | DX: J02.9 Acute pharyngitis, unspecified (principal) ==

== ENCOUNTER → 2023-10-13 | Outpatient (CLI) | payer BC | LOC: M RAD 13:21 | PROVIDERS: ATTEND Physician Assistant | DX: N49.2 Inflammatory disorders of scrotum (principal) ==

== ENCOUNTER → 2023-12-01 | Outpatient (CLI) | payer MEDICAID ==
[2023-12-01 16:00] LABS: BASO % 0.4 % (0.0-1.0); EOS # 0.5 10^3/uL (0.0-0.5); EOS % 6.1 % (0.0-3.0); HEMATOCRIT 47.4 % (42.0-52.0); HEMOGLOBIN 16.4 g/dl (13.5-17.5); LIPASE 40 U/L (12-53); LYMPH # 2.4 10^3/uL (1.5-5.0); LYMPH % 29.2 % (24.0-44.0); MEAN CORPUSCULAR HEMOGLOBIN 30.7 pg (27.0-33.0); MEAN CORPUSCULAR HGB CONC 34.6 g/dl (32.0-36.5); MEAN CORPUSCULAR VOLUME 88.8 fl (80.0-96.0); MONO # 1.2 10^3/uL (0.0-0.8); MONO % 14.1 % (2.0-8.0); NEUTROPHILS # 4.2 10^3/uL (1.5-8.5); NEUTROPHILS % 49.8 % (36.0-66.0); PLATELET COUNT, AUTOMATED 237 10^3/uL (150-450); RED BLOOD COUNT 5.34 10^6/uL (4.30-6.10); WHITE BLOOD COUNT 8.4 10^3/uL (4.0-10.0)
[2023-12-01 16:01] LABS: AMYLASE 62 U/L (30-118)
[2023-12-01 16:02] LABS: ALBUMIN 3.7 G/DL (3.2-5.2); ALKALINE PHOSPHATASE 119 U/L (46-116); ALT/SGPT 50 U/L (7.0-40); AST/SGOT 28 U/L (<34); BILIRUBIN,TOTAL 0.7 MG/DL (0.3-1.2); BLOOD UREA NITROGEN 12 MG/DL (9-23); CALCIUM LEVEL 9.6 MG/DL (8.5-10.1); CARBON DIOXIDE LEVEL 28 MMOL/L (20-31); CHLORIDE LEVEL 105 MMOL/L (98-107); CREATININE FOR GFR 1.28 MG/DL (0.70-1.30); GLOMERULAR FILTRATION RATE > 60.0 (>60); GLUCOSE, FASTING 101 MG/DL (60-100); POTASSIUM SERUM 3.9 MMOL/L (3.5-5.1); SODIUM LEVEL 140 MMOL/L (136-145); TOTAL PROTEIN 7.4 G/DL (5.7-8.2)
[2023-12-01 16:15] LABS: ERYTHROCYTE SEDIMENTATION RATE 27 mm/hr (0-15)
== END ==
LOC: M RAD 15:06
PROVIDERS: ATTEND Nurse Practitioner Adult Health
DX: R10.9 Unspecified abdominal pain (principal)

== ENCOUNTER → 2024-01-18 | Outpatient (CLI) | payer OTHER ==
[~2024-01-18] MED LIST changes: +ROSU5TAB40; -ROSU5TAB5
[2024-01-18 19:24] LABS: ALBUMIN 3.6 G/DL (3.2-5.2); ALKALINE PHOSPHATASE 110 U/L (46-116); ALT/SGPT 36 U/L (7.0-40); AST/SGOT 19 U/L (<34); BILIRUBIN,DIRECT < 0.1 MG/DL (<0.4); BILIRUBIN,TOTAL 0.2 MG/DL (0.3-1.2); TOTAL PROTEIN 6.6 G/DL (5.7-8.2)
== END ==
LOC: M PLALAB 14:37
PROVIDERS: ATTEND Nurse Practitioner Adult Health
DX: K75.81 Nonalcoholic steatohepatitis (NASH) (principal)

== ENCOUNTER → 2024-01-28 | Outpatient (REF) | payer OTHER, MEDICAID ==
[2024-01-28 17:15] LABS: GC DNA AMPLIFICATION NEGATIVE (NEGATIVE)
== END ==
LOC: M LAB REF 15:07
PROVIDERS: ATTEND Family Medicine
DX: R30.0 Dysuria (principal)

== ENCOUNTER → 2024-03-28 | Outpatient (CLI) | payer OTHER ==
[2024-03-28 16:07] LABS: ALBUMIN 4.1 G/DL (3.2-5.2); ALKALINE PHOSPHATASE 98 U/L (46-116); ALT/SGPT 40 U/L (7.0-40); AST/SGOT 24 U/L (<34); BILIRUBIN,TOTAL 0.6 MG/DL (0.3-1.2); BLOOD UREA NITROGEN 10 MG/DL (9-23); CALCIUM LEVEL 9.7 MG/DL (8.5-10.1); CARBON DIOXIDE LEVEL 29 MMOL/L (20-31); CHLORIDE LEVEL 108 MMOL/L (98-107); CREATININE FOR GFR 1.15 MG/DL (0.70-1.30); GLOMERULAR FILTRATION RATE > 60.0 (>60); GLUCOSE, FASTING 92 MG/DL (60-100); POTASSIUM SERUM 3.6 MMOL/L (3.5-5.1); SODIUM LEVEL 143 MMOL/L (136-145); TOTAL PROTEIN 7.4 G/DL (5.7-8.2)
[2024-03-28 16:34] LABS: HIV 1&2 SCREEN NEGATIVE (NEGATIVE)
[2024-03-28 17:10] LABS: GC DNA AMPLIFICATION NEGATIVE (NEGATIVE)
== END ==
LOC: M PLALAB 13:51
PROVIDERS: ATTEND Family Medicine
DX: R10.12 Left upper quadrant pain (principal)

== ENCOUNTER → 2024-06-28 | Outpatient (REF) | payer OTHER ==
[~2024-06-28] MED LIST changes: -LEVO750T14 PO; +LEVO75TAB PO; -ROSU5TAB40; +ROSU5TAB49
[2024-06-28 21:28] LABS: GC DNA AMPLIFICATION NEGATIVE (NEGATIVE)
== END ==
LOC: M LAB REF 16:59
PROVIDERS: ATTEND Nurse Practitioner Adult Health
DX: Z11.3 Encounter for screening for infections with a predominantly sexual mode of transmission (principal)

== ENCOUNTER → 2024-07-24 | Outpatient (CLI) | payer OTHER | LOC: M PLAIMG 12:25 | PROVIDERS: ATTEND Nurse Practitioner Adult Health | DX: M79.601 Pain in right arm (principal) ==

== ENCOUNTER → 2024-09-28 | Outpatient (CLI) | payer OTHER ==
[2024-09-28 19:40] LABS: HIV 1&2 SCREEN NEGATIVE (NEGATIVE)
[2024-09-28 20:45] LABS: GC DNA AMPLIFICATION NEGATIVE (NEGATIVE)
== END ==
LOC: M PLALAB 15:06
PROVIDERS: ATTEND Nurse Practitioner Adult Health
DX: Z11.3 Encounter for screening for infections with a predominantly sexual mode of transmission (principal)